=== PATIENT | male | born 1950 | race African-American/Black ===

== ENCOUNTER 2016-07-06 17:26 | Inpatient (IN) | payer OTHER, MEDICARE ==
[~2016-07-06] VITALS: Ht 175.3 cm; Wt 72.7 kg
[2016-07-06] VITALS (9 sets, daily range): BP systolic 142–166; BP diastolic 83–91; PULSE 102–113; RESP 16–24; TEMP 98.3–99.4; O2SAT 94–98
[~2016-07-06 17:26] MED LIST: ALBU8I INH; ATOR10TA PO; AUGM875T PO; BENZ100 PO; CALTCHW4 PO; GLUCTAB PO; PRED10PA PO; SPIRCAP INH; STAR120T PO
[2016-07-06] MEDS ORDERED: SODIUM CHLORIDE 0.9% FLUSH 5 ML FLUSH IVF PRN (17:45)
[2016-07-06] MEDS: RESP: ALBUTEROL 2.5 MG/IPRATROPIUM 0.5 MG NEB (SCH) INH ×3 (17:45→20:10)
--- NOTE | 2016-07-06 17:45 | PD ---
HPI Chief Complaint: Respiratory Symptoms Time Seen by Provider: 17:45 Travel History International Travel<30 days: No Contact w/Intl Traveler<30days: No Traveled to known affect area: No History of Present Illness HPI 66-year-old male with history of COPD and chronic sinusitis presents the ED for evaluation of 3 day history of increased shortness of breath. Patient endorses a tightness in the central area of the chest has been constant over the same period time. Denies radiation of the pain, diaphoresis, nausea or vomiting. Endorses chronic cough, occasionally productive of white sputum. He also endorses chronic rhinorrhea with occasional bright green output. He saw his primary care provider, Dr. Smith who prescribed azithromycin, currently on day 3. Went to [facility] today where his O2 sats were 88% on room air. Subsequently referred here. PFSH Past Medical History Cancer: Yes (PROSTATE) Cardiovascular Problems: Yes High Cholesterol: Yes COPD: Yes (EMPHYSEMA COPD) Cerebrovascular Accident: No Diabetes: Yes (TYPE 2 ) Diminished Hearing: No Genitourinary: Yes Hypertension: Yes Immune Disorder: No Musculoskeletal: Yes Neurologic: No Psychiatric: No Reproductive: No Respiratory: Yes (COPD) Immunizations Current: Yes Migraines: No Past Surgical History Other Surgery: Yes (4 SINUS SURGERIES - 1999 - 2006) Social History Alcohol Use: No Tobacco Use: No Substance Use: No Allergies-Medications (Allergen,Severity, Reaction): Coded Allergies: Clindamycin (Verified Allergy, Mild, RASH, 07/06/16) Tobramycin (Verified Allergy, Mild, RASH, 07/06/16) Reported Meds & Prescriptions Reported Meds & Active Scripts Active Reported Furosemide 20 Mg Tab 20 Mg PO DAILY Amoxicillin 500 Mg Cap 500 Mg PO BID Caltrate 600+D (Calcium Carbonate-Cholecalciferol) 600-800 Mg-Unit Tab 1 Tab PO BID Spiriva Handihaler (Tiotropium Inh) 18 Mcg Cap 18 Mcg INH DAILY 1 capsule = 18 mcg Atorvastatin (Atorvastatin Calcium) 10 Mg Tab 10 Mg PO HS Metformin ER (Metformin HCl) 500 Mg Mariam 500 Mg PO TID With evening meal Nateglinide 120 Mg Tab 120 Mg PO TIDAC Albuterol Neb (Albuterol Sulfate) 1.25 Mg/3 Ml Neb 1.25 Mg NEB TID NEB PRN Prednisone 10 Mg Tab 10 Mg PO DAILY Review of Systems Except as stated in HPI: all other systems reviewed are Neg Physical Exam Narrative GENERAL: Well-nourished, well-developed thin black male in no acute distress. SKIN: Warm and dry. HEAD: Normocephalic. EYES: No scleral icterus. No injection or drainage. NECK: Supple, trachea midline. No JVD or lymphadenopathy. CARDIOVASCULAR: Regular rate and rhythm without murmurs, gallops, or rubs. 2+ DP and radial pulses bilaterally. RESPIRATORY: Breath sounds equal bilaterally. Diffuse wheezes in all lung moran. ++ accessory muscle use. Speaking in short sentences. GASTROINTESTINAL: Abdomen soft, non-tender, nondistended. Active bowel sounds. MUSCULOSKELETAL: No cyanosis. 2+ pitting edema in bilateral lower extremities, left greater than right. Homans sign negative bilaterally. BACK: Nontender without obvious deformity. No CVA tenderness. Data Data Last Documented VS Vital Signs Date Time Temp Pulse Resp B/P Pulse Ox O2 Delivery O2 Flow Rate FiO2 07/06/16 18:09 95 Nasal Cannula 2.00 07/06/16 17:45 102 24 07/06/16 17:42 99.1 166/91 Orders Complete Blood Count With Diff (07/06/16 17:43) Comprehensive Metabolic Panel (07/06/16 17:43) B-Type Natriuretic Peptide (07/06/16 17:43) Act Partial Throm Time (Ptt) (07/06/16 17:43) Prothrombin Time / Inr (Pt) (07/06/16 17:43) Magnesium (Mg) (07/06/16 17:43) Ckmb (Isoenzyme) Profile (07/06/16 17:43) Troponin I (07/06/16 17:43) Urinalysis - C+S If Indicated (07/06/16 17:43) Influenzae A/B Antigen (07/06/16 17:43) Iv Access Insert/Monitor (07/06/16 17:43) Electrocardiogram (07/06/16 17:43) Ecg Monitoring (07/06/16 17:43) Oximetry (07/06/16 17:43) Oxygen Administration (07/06/16 17:43) Chest, Single Ap (07/06/16 17:43) Sodium Chloride 0.9% Flush (Ns Flush) (07/06/16 17:45) Albuterol-Ipratropium Neb (Duoneb Neb) (07/06/16 17:45) Blood Glucose (07/06/16 17:43) Blood Culture (07/06/16 17:45) Levofloxacin 750 Mg Premix Inj (Levaquin (07/06/16 18:00) CKMB (07/06/16 18:00) CKMB% (07/06/16 18:00) Ct Pulmonary Angiogram (07/06/16 19:40) Admit Order (Ed Use Only) (07/06/16 19:51) Labs Laboratory Tests Test 07/06/16 07/06/16 18:00 18:45 White Blood Count 13.8 TH/MM3 Red Blood Count 5.24 MIL/MM3 Hemoglobin 14.5 GM/DL Hematocrit 43.7 % Mean Corpuscular Volume 83.4 FL Mean Corpuscular Hemoglobin 27.7 PG Mean Corpuscular Hemoglobin 33.2 % Concent Red Cell Distribution Width 15.1 % Platelet Count 197 TH/MM3 Mean Platelet Volume 8.7 FL Neutrophils (%) (Auto) 72.6 % Lymphocytes (%) (Auto) 5.4 % Monocytes (%) (Auto) 6.6 % Eosinophils (%) (Auto) 14.7 % Basophils (%) (Auto) 0.7 % Neutrophils # (Auto) 10.0 TH/MM3 Lymphocytes # (Auto) 0.7 TH/MM3 Monocytes # (Auto) 0.9 TH/MM3 Eosinophils # (Auto) 2.0 TH/MM3 Basophils # (Auto) 0.1 TH/MM3 CBC Comment DIFF FINAL Differential Comment Prothrombin Time 10.5 SEC Prothromb Time International 1.0 RATIO Ratio Activated Partial 23.0 SEC Thromboplast Time Sodium Level 140 MEQ/L Potassium Level 3.5 MEQ/L Chloride Level 100 MEQ/L Carbon Dioxide Level 27.4 MEQ/L Anion Gap 13 MEQ/L Blood Urea Nitrogen 23 MG/DL Creatinine 1.11 MG/DL Estimat Glomerular Filtration 80 ML/MIN Rate Random Glucose 122 MG/DL Calcium Level 9.0 MG/DL Magnesium Level 1.9 MG/DL Total Bilirubin 0.8 MG/DL Aspartate Amino Transf 8 U/L (AST/SGOT) Alanine Aminotransferase 19 U/L (ALT/SGPT) Alkaline Phosphatase 79 U/L Total Creatine Kinase 173 U/L Creatine Kinase MB 2.6 NG/ML Troponin I LESS THAN 0.02 NG/ML B-Type Natriuretic Peptide 24 PG/ML Total Protein 7.0 GM/DL Albumin 3.1 GM/DL Urine Color LIGHT-YELLOW Urine Turbidity CLEAR Urine pH 6.0 Urine Specific [place] 1.009 Urine Protein NEG mg/dL Urine Glucose (UA) NEG mg/dL Urine Ketones NEG mg/dL Urine Occult Blood TRACE Urine Nitrite NEG Urine Bilirubin NEG Urine Urobilinogen LESS THAN 2.0 MG/DL Urine Leukocyte Esterase NEG Urine RBC 1 /hpf Urine WBC 1 /hpf Urine Mucus FEW /lpf Microscopic Urinalysis Comment CULT NOT INDICATED MDM Medical Decision Making Medical Screen Exam Complete: Yes Emergency Medical Condition: Yes Interpretation(s) Rate 102, sinus rhythm. NE interval 126 ms. QRS 94, QTC 398. Normal axis. No ischemic changes. Reviewed by Dr. Goddard. Differential Diagnosis Influenza versus viral illness versus pneumonia versus COPD exacerbation versus PE Narrative Course 66-year-old male with history of COPD and chronic sinusitis presents the ED for evaluation of 3 day history of increased shortness of breath and tightness of the chest. Denies radiation of the pain, diaphoresis, nausea or vomiting. Endorses chronic cough, occasionally productive of white sputum and chronic rhinorrhea with occasional bright green output. He saw his primary care provider, Dr. Smith who prescribed azithromycin, currently on day 3. On 2 L O2 as needed at home. O2 sats 83% at [facility] today, referred here. Vitals reviewed. Sats the low 90s on room air on presentation. Respiratory rate 24. Tachycardic rate 107. Patient is to, speaking in short sentences, positive accessory muscle use. Auscultation reveals diffuse wheezing in the lung moran. Edema bilateral lower extremities, left greater than right. Homans sign negative bilaterally. Placed on 2 L nasal cannula, IV was established. Blood cultures were obtained and are pending. Patient was administered duo nebs 3 and Levaquin. CBC: WBC 13.8. Hemoglobin 14.5. INR 1.0 CBC: BUN 23, creatinine 1.11 Magnesium 1.9. BNP 24. Cardiac enzymes: Negative Chest x-ray: No acute cardiopulmonary process. EKG: As above, no ischemic changes. CTA: Pending. Recheck of the patient reveals O2 sats improved to 98% on 2 L nasal cannula. Subjective improvement and breathing without much improvement of the lung sounds. Sats fall to 88% sans supplementary O2. Discussed the patient, workup and plan of care with Dr. Goddard who is agreeable with admission. We'll admit for COPD exacerbation. Spoke with Dr. Alarcon, medical service, who agrees to accept this patient. Please see her note for disposition. Diagnosis Primary Impression: COPD exacerbation Additional Impression: Hypoxia Sonia Ferguson Jul 06, 2016 17:45
[2016-07-06] MEDS ORDERED: FURO20TA PO (17:49)
[2016-07-06] MEDS ORDERED: ALBU1.25 NEB (17:49)
[2016-07-06] MEDS ORDERED: PRED10 PO (17:49)
[2016-07-06] MEDS ORDERED: ATOR10TA15 PO (17:49)
[2016-07-06] MEDS ORDERED: SPIRCAP INH (17:49)
[2016-07-06] MEDS ORDERED: AMOX500C PO (17:49)
[2016-07-06] MEDS ORDERED: NATE120T PO (17:49)
[2016-07-06] MEDS ORDERED: CALTTAB PO (17:49)
[2016-07-06] MEDS ORDERED: METF500T4 PO (17:49)
[2016-07-06] MEDS ORDERED: LEVOFLOXACIN 750 MG PREMIX INJ 150 ML IV ONE (18:00)
[2016-07-06 18:11] LABS: BASOPHIL # 0.1 TH/MM3 (0-0.2); BASOPHIL % 0.7 % (0.0-2.0); EOSINOPHIL % 14.7 % (0.0-4.0); HEMATOCRIT 43.7 % (39.0-51.0); HEMO FLAGS DIFF FINAL; LYMPH % 5.4 % (9.0-44.0); LYMPHOCYTE # 0.7 TH/MM3 (1.0-4.8); MEAN CELL VOLUME 83.4 FL (80.0-100.0); MEAN CORPUSCULAR HEMOGLOBIN 27.7 PG (27.0-34.0); MEAN CORPUSCULAR HGB CONC 33.2 % (32.0-36.0); MONO % 6.6 % (0.0-8.0); NEUT % 72.6 % (16.0-70.0); PLATELET COUNT 197 TH/MM3 (150-450); RED BLOOD COUNT 5.24 MIL/MM3 (4.50-5.90); RED CELL DISTRIBUTION WIDTH 15.1 % (11.6-17.2); WHITE BLOOD COUNT 13.8 TH/MM3 (4.0-11.0)
[2016-07-06 18:20] LABS: PROTHROMBIN TIME - PATIENT 10.5 SEC (9.8-11.6)
--- NOTE | 2016-07-06 18:28 | PD ---
Data Data Last Documented VS Vital Signs Date Time Temp Pulse Resp B/P Pulse Ox O2 Delivery O2 Flow Rate FiO2 07/06/16 19:00 107 20 94 Nasal Cannula 3 07/06/16 19:00 142/84 07/06/16 17:42 99.1 Orders Complete Blood Count With Diff (07/06/16 17:43) Comprehensive Metabolic Panel (07/06/16 17:43) B-Type Natriuretic Peptide (07/06/16 17:43) Act Partial Throm Time (Ptt) (07/06/16 17:43) Prothrombin Time / Inr (Pt) (07/06/16 17:43) Magnesium (Mg) (07/06/16 17:43) Ckmb (Isoenzyme) Profile (07/06/16 17:43) Troponin I (07/06/16 17:43) Urinalysis - C+S If Indicated (07/06/16 17:43) Influenzae A/B Antigen (07/06/16 17:43) Iv Access Insert/Monitor (07/06/16 17:43) Electrocardiogram (07/06/16 17:43) Ecg Monitoring (07/06/16 17:43) Oximetry (07/06/16 17:43) Oxygen Administration (07/06/16 17:43) Chest, Single Ap (07/06/16 17:43) Sodium Chloride 0.9% Flush (Ns Flush) (07/06/16 17:45) Albuterol-Ipratropium Neb (Duoneb Neb) (07/06/16 17:45) Blood Glucose (07/06/16 17:43) Blood Culture (07/06/16 17:45) Levofloxacin 750 Mg Premix Inj (Levaquin (07/06/16 18:00) CKMB (07/06/16 18:00) CKMB% (07/06/16 18:00) Ct Pulmonary Angiogram (07/06/16 19:40) Admit Order (Ed Use Only) (07/06/16 19:51) Labs Laboratory Tests Test 07/06/16 07/06/16 18:00 18:45 White Blood Count 13.8 TH/MM3 Red Blood Count 5.24 MIL/MM3 Hemoglobin 14.5 GM/DL Hematocrit 43.7 % Mean Corpuscular Volume 83.4 FL Mean Corpuscular Hemoglobin 27.7 PG Mean Corpuscular Hemoglobin 33.2 % Concent Red Cell Distribution Width 15.1 % Platelet Count 197 TH/MM3 Mean Platelet Volume 8.7 FL Neutrophils (%) (Auto) 72.6 % Lymphocytes (%) (Auto) 5.4 % Monocytes (%) (Auto) 6.6 % Eosinophils (%) (Auto) 14.7 % Basophils (%) (Auto) 0.7 % Neutrophils # (Auto) 10.0 TH/MM3 Lymphocytes # (Auto) 0.7 TH/MM3 Monocytes # (Auto) 0.9 TH/MM3 Eosinophils # (Auto) 2.0 TH/MM3 Basophils # (Auto) 0.1 TH/MM3 CBC Comment DIFF FINAL Differential Comment Prothrombin Time 10.5 SEC Prothromb Time International 1.0 RATIO Ratio Activated Partial 23.0 SEC Thromboplast Time Sodium Level 140 MEQ/L Potassium Level 3.5 MEQ/L Chloride Level 100 MEQ/L Carbon Dioxide Level 27.4 MEQ/L Anion Gap 13 MEQ/L Blood Urea Nitrogen 23 MG/DL Creatinine 1.11 MG/DL Estimat Glomerular Filtration 80 ML/MIN Rate Random Glucose 122 MG/DL Calcium Level 9.0 MG/DL Magnesium Level 1.9 MG/DL Total Bilirubin 0.8 MG/DL Aspartate Amino Transf 8 U/L (AST/SGOT) Alanine Aminotransferase 19 U/L (ALT/SGPT) Alkaline Phosphatase 79 U/L Total Creatine Kinase 173 U/L Creatine Kinase MB 2.6 NG/ML Troponin I LESS THAN 0.02 NG/ML B-Type Natriuretic Peptide 24 PG/ML Total Protein 7.0 GM/DL Albumin 3.1 GM/DL Urine Color LIGHT-YELLOW Urine Turbidity CLEAR Urine pH 6.0 Urine Specific [place] 1.009 Urine Protein NEG mg/dL Urine Glucose (UA) NEG mg/dL Urine Ketones NEG mg/dL Urine Occult Blood TRACE Urine Nitrite NEG Urine Bilirubin NEG Urine Urobilinogen LESS THAN 2.0 MG/DL Urine Leukocyte Esterase NEG Urine RBC 1 /hpf Urine WBC 1 /hpf Urine Mucus FEW /lpf Microscopic Urinalysis Comment CULT NOT INDICATED MDM Supervised Visit with JERRY: Yes Narrative Course I, Dr. Goddard, have reviewed the advance practice practitioner's documentation and am in agreement, met with the patient face to face, made the diagnosis, and the medical decision making was done by me. *My assessment and Findings: Patient is 66 year old male presents tachycardic and tachypneic. COPD exacerbation obvious suspecting underlying PNA. CXR negative. Significantly tachycardic to high 120's allbeit after nebulizer treatment with albuterol. PE is to be considered. Scan negative. SOB is improving but still would benefit from inpatient observation. Scripts Hydrocodone-Acetaminophen 5-325 mg Tab1 Tab PO Q6HR PRN (pain) #28 TAB Prov:Emory Conti MD 07/08/16 Fluticasone Nasal [place] 50 Mcg/Act Naspr2 [place] NASAL DAILY #1 BOTTLE Prov:Emory Conti MD 07/08/16 Veto Goddard MD Jul 06, 2016 18:28
--- NOTE | 2016-07-06 18:38 | RADRPT ---
EXAM DATE/TIME: 07/06/2016 18:05 [facility] COMPARISON: No previous studies available for comparison. INDICATIONS : Shortness of breath. MEDICAL HISTORY : Chronic obstructive pulmonary disease. SURGICAL HISTORY : None. ENCOUNTER: Initial ACUITY: 2 weeks PAIN SCORE: 0/10 LOCATION: Bilateral chest FINDINGS: A single view of the chest demonstrates the lungs to be symmetrically aerated without evidence of mas s, infiltrate or effusion. The cardiomediastinal contours are unremarkable. There appears to be some calcification of the mitral valve annulus. S-shaped scoliosis of the thoracolumbar spine. Otherwise intact. CONCLUSION: No acute cardiopulmonary process. Apparent calcification of the mitral valve annulus. Florin Mancera MD on July 06, 2016 at 18:35 Board Certified Radiologist. This report was verified electronically.
[2016-07-06 18:46] LABS: ANION GAP 13 MEQ/L (5-15); AST (GOT) 8 U/L (15-37); BICARBONATE 27.4 MEQ/L (21.0-32.0); BLOOD UREA NITROGEN 23 MG/DL (7-18); CHLORIDE 100 MEQ/L (98-107); GLOMERULAR FILTRATION RATE 80 ML/MIN (>89); MAGNESIUM 1.9 MG/DL (1.5-2.5); POTASSIUM 3.5 MEQ/L (3.5-5.1); SODIUM (NA) 140 MEQ/L (136-145)
[2016-07-06 18:50] LABS: ALKALINE PHOSPHATASE 79 U/L (45-117); ALT (GPT) 19 U/L (12-78); CREATINE KINASE 173 U/L (39-308); TOTAL BILIRUBIN ADULT 0.8 MG/DL (0.2-1.0)
[2016-07-06 18:57] LABS: BLOOD, URINE TRACE (NEG); COMMENT (UR) CULT NOT INDICATED; CULTURE IF INDICATED CULT NOT INDICATED; GLUCOSE,URINE NEG (NEG); KETONE, URINE NEG (NEG); MUCUS URINE FEW /lpf (OCC); NITRITE,URINE NEG (NEG); URINE COLOR LIGHT-YELLOW (YELLW/STRAW)
[2016-07-06 19:03] LABS: CKMB 2.6 NG/ML (0.5-3.6)
[2016-07-06] MEDS ORDERED: ACETAMINOPHEN/HYDROcodone 325 MG/5 MG TAB PO PRN (20:00)
[2016-07-06] MEDS ORDERED: DEXTROSE 50% IN WATER 50 ML VIAL(D50) IV PUSH PRN (20:00)
[2016-07-06] MEDS ORDERED: ACETAMINOPHEN 325 MG TAB PO PRN (20:00)
[2016-07-06] MEDS ORDERED: RESP: ALBUTEROL 2.5 MG/IPRATROPIUM 0.5 MG NEB (PRN) NEB (20:00)
[2016-07-06] MEDS ORDERED: SODIUM CHLORIDE 0.9% FLUSH 5 ML FLUSH FLUSH PRN (20:00)
[2016-07-06] MEDS ORDERED: ACETAMINOPHEN/HYDROcodone 325 MG/10 MG TAB PO PRN (20:00)
[2016-07-06] MEDS ORDERED: GLUCAGON 1 MG/ML VIAL OTHER PRN (20:00)
[2016-07-06] MEDS ORDERED: ONDANSETRON HCL 4 MG/2 ML VIAL IVP PRN (20:00)
[2016-07-06] MEDS ORDERED: BISACODYL 10 MG SUPP PR PRN (20:00)
--- NOTE | 2016-07-06 20:02 | HHI.HP ---
HPI Service [facility] Primary Care Physician Sabina Smith DO Admission Diagnosis COPD exacerbation, hypoxia Diagnoses: (1) COPD (chronic obstructive pulmonary disease) Diagnosis: Principal (2) Hypoxia Diagnosis: Principal (3) HTN (hypertension) Diagnosis: Principal (4) DM (diabetes mellitus) Diagnosis: Principal Travel History International Travel<30 Days: No Contact w/Intl Traveler <30 Da: No Traveled to Known Affected Are: No History of Present Illness This is a 66-year-old male with a PMH of HTN, DM, COPD, O2 Dependent and Prostate CA who was referred to the ER from Urgent Care for hypoxia with O2 sat 88% on RA. Pt states he's had ongoing SOB and productive cough w/ white- colored sputum x3 days, started on Z-pack by PCP, taking meds as prescribed w/ minimal relief. Presented to Urgent Care today for ongoing symptoms and found to have hypoxia. Denies fever or chills, no chest pain. On arrival, BP 166/91 , HR 107, O2 sat 94% on RA, Temp 99.1. WBC 13.8. Chemistry essentially unremarkable. UA negative. CXR with no acute findings. CTA Pulm pending. S/ p Levaquin and DuoNeb in ER w/ some improvement. Review of Systems Other ROS: 14 point review of systems otherwise negative. Past Family Social History Past Medical History PMH: HTN, DM, COPD, O2 Dependent and Prostate CA Past Surgical History PAST SURGICAL HISTORY: Sinus Surgery Allergies: Coded Allergies: Clindamycin (Verified Allergy, Mild, RASH, 07/06/16) Tobramycin (Verified Allergy, Mild, RASH, 07/06/16) Family History PAST FAMILY HISTORY: Reviewed. No h/o DM or CAD Social History PAST SOCIAL HISTORY: Negative for alcohol, tobacco or drugs. Physical Exam Vital Signs Vital Signs Date Time Temp Pulse Resp B/P Pulse Ox O2 Delivery O2 Flow Rate FiO2 07/06/16 18:09 95 Nasal Cannula 2.00 07/06/16 17:45 98 Nasal Cannula 2 07/06/16 17:45 102 24 94 Room Air 07/06/16 17:45 98 Nasal Cannula 2 1/22/17 17:42 99.1 107 24 166/91 94 Room Air 07/06/16 17:40 107 24 166/91 94 Room Air 07/06/16 17:30 98.3 109 16 163/88 98 Physical Exam PE: GENERAL: Pleasant middle-aged black male in no acute distress. HEENT: PERRLA, EOMI. No scleral icterus or conjunctival pallor. No lid lag or facial droop. CARDIOVASCULAR: Regular rate and rhythm. No obvious murmurs to auscultation. No chest tenderness to palpation. RESPIRATORY: No obvious rhonchi. Occasional wheezing. Breath sounds equal bilaterally. GASTROINTESTINAL: Abdomen soft, non-tender, nondistended. BS normal. MUSCULOSKELETAL: Extremities without clubbing, cyanosis, or edema. No obvious deformities. NEUROLOGICAL: Awake, alert and oriented x4. No focal neurologic deficits. Moving both upper and lower extremities spontaneously. Laboratory Laboratory Tests Test 07/06/16 07/06/16 18:00 18:45 White Blood Count 13.8 Red Blood Count 5.24 Hemoglobin 14.5 Hematocrit 43.7 Mean Corpuscular Volume 83.4 Mean Corpuscular Hemoglobin 27.7 Mean Corpuscular Hemoglobin 33.2 Concent Red Cell Distribution Width 15.1 Platelet Count 197 Mean Platelet Volume 8.7 Neutrophils (%) (Auto) 72.6 Lymphocytes (%) (Auto) 5.4 Monocytes (%) (Auto) 6.6 Eosinophils (%) (Auto) 14.7 Basophils (%) (Auto) 0.7 Neutrophils # (Auto) 10.0 Lymphocytes # (Auto) 0.7 Monocytes # (Auto) 0.9 Eosinophils # (Auto) 2.0 Basophils # (Auto) 0.1 CBC Comment DIFF FINAL Differential Comment Prothrombin Time 10.5 Prothromb Time International 1.0 Ratio Activated Partial 23.0 Thromboplast Time Sodium Level 140 Potassium Level 3.5 Chloride Level 100 Carbon Dioxide Level 27.4 Anion Gap 13 Blood Urea Nitrogen 23 Creatinine 1.11 Estimat Glomerular Filtration 80 Rate Random Glucose 122 Calcium Level 9.0 Magnesium Level 1.9 Total Bilirubin 0.8 Aspartate Amino Transf 8 (AST/SGOT) Alanine Aminotransferase 19 (ALT/SGPT) Alkaline Phosphatase 79 Total Creatine Kinase 173 Creatine Kinase MB 2.6 Troponin I LESS THAN 0.02 B-Type Natriuretic Peptide 24 Total Protein 7.0 Albumin 3.1 Urine Color LIGHT-YELLOW Urine Turbidity CLEAR Urine pH 6.0 Urine Specific [place] 1.009 Urine Protein NEG Urine Glucose (UA) NEG Urine Ketones NEG Urine Occult Blood TRACE Urine Nitrite NEG Urine Bilirubin NEG Urine Urobilinogen LESS THAN 2.0 Urine Leukocyte Esterase NEG Urine RBC 1 Urine WBC 1 Urine Mucus FEW Microscopic Urinalysis Comment CULT NOT INDICATED Date/Time Procedure Status Source Growth 07/06/16 18:05 Influenza Types A,B Antigen (DORIAN) - Final Complete Nasal Washing NEGATIVE FOR FLU A AND B ANTIGEN.... 07/06/16 18:05 Aerobic Blood Culture Received Blood Line Pending 07/06/16 18:05 Anaerobic Blood Culture Received Blood Line Pending Result Diagram: 07/06/16 1800 07/06/16 1800 Assessment and Plan Problem List: (1) COPD (chronic obstructive pulmonary disease) ICD Code: J44.9 Status: Acute (2) Hypoxia ICD Code: R09.02 Status: Acute (3) HTN (hypertension) ICD Code: I10 Status: Acute (4) DM (diabetes mellitus) ICD Code: E11.9 Status: Acute Assessment and Plan A/P: 1. COPD: Chronic Respiratory Failure w/ Acute Exacerbation. Referred to ER from Urgent Care secondary to hypoxia w/ O2 sat 88% on RA. S/p Z-pack x3 days by PCP w/ no improvement. +wheezing, +respiratory distress on arrival. Solu- Medrol, DuoNeb, Symbicort, Mucinex. S/p Levaquin in ER, will continue w/ IV Abx for possible atypical PNA. CXR w/ no acute findings, images reviewed by me. CTA Pulm ordered in ER, currently pending. Will follow up results. 2. DM: Sliding scale w/ Accu-Cheks. On Metformin and Nateglinide at home. 3. HTN: BP 160's, likely compounded by respiratory distress. Monitor BP. Resume home medications. 4. DVT Prophylaxis: SCD/Teds. 5. Social work for d/c planning as needed. 6. Case discussed w/ ER physician at length. Physician Certification 2 Midnight Certification Type: Admission for Inpatient Services Order for Inpatient Services The services are ordered in accordance with Medicare regulations or non- Medicare payer requirements, as applicable. In the case of services not specified as inpatient-only, they are appropriately provided as inpatient services in accordance with the 2-midnight benchmark. Estimated LOS (days): 2 days is the estimated time the patient will need to remain in the hospital, assuming treatment plan goals are met and no additional complications. Post-Hospital Plan: Home Marta Alarcon MD Jul 06, 2016 20:02
[2016-07-06] MEDS: RESP: ALBUTEROL 2.5 MG/IPRATROPIUM 0.5 MG NEB (SCH) NEB (20:11)
[2016-07-06] MEDS ORDERED: SODIUM CHLOR 0.9% 1000 ML INJ 1,000 ML IV ONE (20:15)
[2016-07-06] MEDS ORDERED: ACETAMINOPHEN 500 MG CPLT PO ONE (20:15)
[2016-07-06] MEDS ORDERED: IOHEXOL 350 MG/ML 10 ML VIAL (for RAD DIAG) IV ONE (20:52)
[2016-07-06] MEDS: INSULIN ASPART SUPPLEMENTAL SCALE SQ SCH (21:00)
[2016-07-06] MEDS: SODIUM CHLORIDE 0.9% FLUSH 5 ML FLUSH FLUSH SCH (21:05)
--- NOTE | 2016-07-06 21:06 | RADRPT ---
EXAM DATE/TIME: 07/06/2016 20:48 [facility] COMPARISON: No previous studies available for comparison. INDICATIONS : Shortness of breath and chest tightness. IV CONTRAST: 75 cc Omnipaque 350 (iohexol) IV RADIATION DOSE: 23.36 CTDIvol (mGy) MEDICAL HISTORY : Cardiovascular disease. Carcinoma, prostate. Chronic obstructive pulmonary dise ase. SURGICAL HISTORY : None. ENCOUNTER: Initial ACUITY: 1 day PAIN SCALE: 5/10 LOCATION: Bilateral chest TECHNIQUE: Volumetric scanning of the chest was performed using a pulmonary embolism protocol MIP images were reconstructed. Using automated exposure control and adjustment of the mA and/or kV acco rding to patient size, radiation dose was kept as low as reasonably achievable to obtain optimal diag nostic quality images. FINDINGS: No pulmonary embolus is identified. There is some increased density seen in the posteromedial left l ower lobe. There appears to be some possible bronchiectasis in this region. There are prominent lym ph nodes in the AP window, left tracheobronchial and subcarinal regions. There is a mildly prominent lymph node seen in the left hilum. Visualized structures in the upper abdomen are unremarkable. Th ere are some coronary artery calcifications present. CONCLUSION: 1. No pulmonary embolus. 2. Increased density in the posteromedial left lower lobe with possible bronchiectasis. There is al so some adenopathy in the left side of the mediastinum in the AP window, left tracheobronchial region , left hilum and the subcarinal regions. Bert Gill MD on July 06, 2016 at 20:59 Board Certified Radiologist. This report was verified electronically.
[2016-07-06] MEDS: guaiFENesin E.R. 600 MG TAB PO SCH (21:19)
[2016-07-06] MEDS: BUDESONIDE-FORMOTEROL 160/4.5 MCG INHALER INH SCH (21:41)
[2016-07-06] MEDS: ATORVASTATIN 10 MG TAB PO SCH (21:42)
[2016-07-07] VITALS (11 sets, daily range): BP systolic 56–162; BP diastolic 77–90; PULSE 83–100; RESP 18–20; TEMP 96–98.6; O2SAT 92–96
[2016-07-07] MEDS: methylPREDNISolone SOD SUCC 40 MG/1 ML VIAL IV PUSH SCH ×4 (00:30→22:15)
[2016-07-07 06:08] LABS: AUTOMATED NEUTROPHIL # 10.1 TH/MM3 (1.8-7.7); BASOPHIL % 0.3 % (0.0-2.0); EOSINOPHIL # 0.5 TH/MM3 (0-0.4); EOSINOPHIL % 4.7 % (0.0-4.0); HEMATOCRIT 40.6 % (39.0-51.0); HEMO FLAGS DIFF FINAL; LYMPH % 4.4 % (9.0-44.0); LYMPHOCYTE # 0.5 TH/MM3 (1.0-4.8); MEAN CELL VOLUME 83.1 FL (80.0-100.0); MEAN CORPUSCULAR HEMOGLOBIN 27.9 PG (27.0-34.0); MEAN CORPUSCULAR HGB CONC 33.6 % (32.0-36.0); MONO % 1.9 % (0.0-8.0); NEUT % 88.7 % (16.0-70.0); PLATELET COUNT 171 TH/MM3 (150-450); RED BLOOD COUNT 4.89 MIL/MM3 (4.50-5.90); RED CELL DISTRIBUTION WIDTH 15.1 % (11.6-17.2); WHITE BLOOD COUNT 11.3 TH/MM3 (4.0-11.0)
[2016-07-07 06:30] LABS: ALKALINE PHOSPHATASE 82 U/L (45-117); ALT (GPT) 16 U/L (12-78); ANION GAP 10 MEQ/L (5-15); AST (GOT) 9 U/L (15-37); BICARBONATE 27.1 MEQ/L (21.0-32.0); BLOOD UREA NITROGEN 17 MG/DL (7-18); CHLORIDE 99 MEQ/L (98-107); GLOMERULAR FILTRATION RATE 84 ML/MIN (>89); POTASSIUM 3.9 MEQ/L (3.5-5.1); SODIUM (NA) 136 MEQ/L (136-145); TOTAL BILIRUBIN ADULT 1.3 MG/DL (0.2-1.0)
[2016-07-07] MEDS: INSULIN ASPART SUPPLEMENTAL SCALE SQ SCH ×3 (06:49→22:15)
[2016-07-07] MEDS: RESP: ALBUTEROL 2.5 MG/IPRATROPIUM 0.5 MG NEB (SCH) NEB ×3 (07:50→19:57)
[2016-07-07] MEDS ORDERED: PNEUMOCOCCAL POLYVALENT INJ 25 MCG/0.5 ML SYR IM ONE (09:00)
[2016-07-07] MEDS ORDERED: INFLUENZA VIRUS VACCINE (QUADRIVALENT) 0.5 ML SYR IM ONE (09:00)
--- NOTE | 2016-07-07 09:35 | HHI.PR ---
Subjective Remarks Follow-up for COPD exacerbation. The patient reports his shortness of breath has improved some. He is on home oxygen just as needed. He states that shortness of breath has been worse with exertion. He hasn't tried getting out of bed and ambulating yet. He is having a cough with white sputum. He has chronic sinus problems and a sinus headache, unchanged, prescribed fluticasone last week. Objective Vitals Vital Signs Date Time Temp Pulse Resp B/P Pulse Ox O2 Delivery O2 Flow Rate FiO2 07/07/16 07:53 96.0 89 18 143/90 94 07/07/16 07:50 94 Nasal Cannula 3.00 07/07/16 06:05 18 07/07/16 05:04 96.8 96 20 142/77 95 07/07/16 02:12 98.4 100 20 162/87 95 07/07/16 01:45 20 07/06/16 23:23 109 07/06/16 21:57 99.4 102 20 153/83 94 07/06/16 21:00 113 21 150/89 95 Nasal Cannula 3 07/06/16 19:00 107 20 94 Nasal Cannula 3 07/06/16 19:00 107 20 142/84 94 Nasal Cannula 3 07/06/16 18:09 95 Nasal Cannula 2.00 07/06/16 17:45 98 Nasal Cannula 2 07/06/16 17:45 102 24 94 Room Air 07/06/16 17:45 98 Nasal Cannula 2 07/06/16 17:42 99.1 107 24 166/91 94 Room Air 07/06/16 17:40 107 24 166/91 94 Room Air 07/06/16 17:30 98.3 109 16 163/88 98 I/O 07/06/16 07/06/16 07/06/16 07/07/16 07/07/16 07/07/16 07:00 15:00 23:00 07:00 15:00 23:00 Output Total 800 ml Balance -800 ml Output Urine Total 800 ml Result Diagram: 07/07/16 0516 07/07/16 [address] Angiography 07/06/161939 Signed Impressions: Service Date/Time: Wednesday, July 06, 2016 20:48 - CONCLUSION: 1. No pulmonary embolus. 2. Increased density in the posteromedial left lower lobe with possible bronchiectasis. There is also some adenopathy in the left side of the mediastinum in the AP window, left tracheobronchial region, left hilum and the subcarinal regions. Bert Gill MD Chest X-Ray 07/06/16 [id number] Signed Impressions: Service Date/Time: Wednesday, July 06, 2016 18:05 - CONCLUSION: No acute cardiopulmonary process. Apparent calcification of the mitral valve annulus. Florin Mancera MD Objective Remarks GENERAL: Well-developed well-nourished. In no acute distress. SKIN: Warm and dry. No lesions noted. HEENT: Normocephalic. Pupils equal and round. Mucous membranes pink and moist. No sinus TTP. CARDIOVASCULAR: Regular rate and rhythm. No murmur appreciated. RESPIRATORY: No accessory muscle use. Clear to auscultation. Decreased, diminished breath sounds. No wheezing. GASTROINTESTINAL: Abdomen soft, non-tender, nondistended. Bowel sounds x4. MUSCULOSKELETAL: No obvious deformities. No clubbing or cyanosis. No edema. NEUROLOGICAL: Awake and alert. No focal neurological deficits. Moves upper and lower extremities spontaneously. Normal speech. PSYCHIATRIC: Appropriate mood and affect; insight and judgment normal. A/P Problem List: (1) COPD (chronic obstructive pulmonary disease) ICD Code: J44.9 Status: Acute (2) Hypoxia ICD Code: R09.02 Status: Acute (3) HTN (hypertension) ICD Code: I10 Status: Chronic (4) DM (diabetes mellitus) ICD Code: E11.9 Status: Chronic Assessment and Plan 66-year-old male with a PMH of HTN, DM, COPD, O2 Dependent and Prostate CA who was referred to the ER from Urgent Care for hypoxia with O2 sat 88% on RA COPD: Chronic Respiratory Failure on home O2 as needed, now w/ Acute Exacerbation. S/p Z-pack x3 days by PCP w/ no improvement. Improving. Continue IV steroids, taper. DuoNebs scheduled and as needed. Symbicort, Spiriva, Mucinex. Continue IV Levaquin. CXR w/ no acute findings. CTA Pulm ordered in the ED; no PE and left lower lobe bronchiectasis, left mediastinal adenopathy. Outpatient follow-up for DC. Sinusitis: Chronic. Continue fluticasone. Start Claritin. DM: Sliding scale w/ Accu-Cheks. On Metformin and Nateglinide at home. HTN: Not optimally controlled, likely compounded by respiratory distress. Continue home furosemide. DVT Prophylaxis: SCD/Teds. Written by Brian Stovall, acting as scribe for Dr. Conti on 07/07/16 at 09:35. The documentation accurately reflects the work performed [id number] by me on at 0935 Discharge Planning Disposition pending continued clinical improvement Problem Qualifiers (1) COPD (chronic obstructive pulmonary disease): Qualified Code: J44.1 - Chronic obstructive pulmonary disease with acute exacerbation (2) HTN (hypertension): Qualified Code: I10 - Essential hypertension (3) DM (diabetes mellitus): Brian Stovall Jul 07, 2016 09:35 Emory Conti MD Jul 07, 2016 11:28
[2016-07-07] MEDS: SODIUM CHLORIDE 0.9% FLUSH 5 ML FLUSH FLUSH SCH ×2 (09:57→20:18)
[2016-07-07] MEDS: TIOTROPIUM BROMIDE 18 MCG INH INH SCH (09:57)
[2016-07-07] MEDS: BUDESONIDE-FORMOTEROL 160/4.5 MCG INHALER INH SCH ×2 (09:58→22:14)
[2016-07-07] MEDS: FUROSEMIDE 20 MG TAB PO SCH (09:59)
[2016-07-07] MEDS: LORATADINE 10 MG TAB PO SCH (09:59)
[2016-07-07] MEDS: guaiFENesin E.R. 600 MG TAB PO SCH ×2 (09:59→22:14)
[2016-07-07] MEDS: FLUTICASONE PROPIONATE 50 MCG/ACT 16 GM NASAL SPRAY NASAL SCH (10:00)
--- NOTE | 2016-07-07 17:07 | EKG ---
Date Performed: 07/06/2016 Time Performed: 17:54:19 PTAGE: 66 years EKG: SINUS TACHYCARDIA POSSIBLE LEFT ATRIAL ENLARGEMENT Compared to prior tracing no significant change ABNORMAL RHYTHM ECG PREVIOUS TRACING : 08/29/2013 09.36 DOCTOR: Michael Barraza Interpretating Date/Time 07/07/2016 17:05:33
[2016-07-07] MEDS ORDERED: LEVOFLOXACIN 750 MG PREMIX INJ 150 ML IV SCH (20:00)
[2016-07-07] MEDS: ATORVASTATIN 10 MG TAB PO SCH (22:14)
[2016-07-08] VITALS (7 sets, daily range): BP systolic 129–157; BP diastolic 77–84; PULSE 78–98; RESP 18–20; TEMP 96.2–98.9; O2SAT 95–97
[2016-07-08] MEDS: methylPREDNISolone SOD SUCC 40 MG/1 ML VIAL IV PUSH SCH (05:49)
[2016-07-08] MEDS: INSULIN ASPART SUPPLEMENTAL SCALE SQ SCH ×4 (06:29→21:25)
[2016-07-08 08:03] LABS: BICARBONATE 26.9 MEQ/L (21.0-32.0); MAGNESIUM 2.4 MG/DL (1.5-2.5); POTASSIUM 4.3 MEQ/L (3.5-5.1)
--- NOTE | 2016-07-08 08:42 | HHI.PR ---
Subjective Remarks Follow-up COPD. Improving shortness of breath and exercise tolerance. He ambulated to the restroom. History of bronchiectasis. 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 Objective Vitals Vital Signs Date Time Temp Pulse Resp B/P Pulse Ox O2 Delivery O2 Flow Rate FiO2 07/08/16 08:00 98.5 81 20 134/79 96 07/08/16 05:25 98.4 78 20 148/83 95 07/07/16 23:14 98.6 92 20 158/81 96 07/07/16 20:31 98.6 99 20 156/80 95 07/07/16 20:08 92 07/07/16 19:58 95 Nasal Cannula 3.00 07/07/16 16:38 96.5 90 18 143/87 92 07/07/16 15:44 90 07/07/16 12:46 96.3 83 18 151/90 96 I/O 07/07/16 07/07/16 07/07/16 07/08/16 07/08/16 07/08/16 07:00 15:00 23:00 07:00 15:00 23:00 Intake Total 960 ml 240 ml Output Total 800 ml Balance -800 ml 960 ml 240 ml Intake Oral 960 ml 240 ml Output Urine Total 800 ml # Voids 4 5 Result Diagram: 07/07/16 0516 07/08/[address] Angiography 07/06/16 1940 Signed Impressions: Service Date/Time: Wednesday, July 06, 2016 20:48 - CONCLUSION: 1. No pulmonary embolus. 2. Increased density in the posteromedial left lower lobe with possible bronchiectasis. There is also some adenopathy in the left side of the mediastinum in the AP window, left tracheobronchial region, left hilum and the subcarinal regions. Bert Gill MD Chest X-Ray 07/06/16 [id number] Signed Impressions: Service Date/Time: Wednesday, July 06, 2016 18:05 - CONCLUSION: No acute cardiopulmonary process. Apparent calcification of the mitral valve annulus. Florin Mancera MD Objective Remarks GENERAL: Well-developed, well-nourished in no distress SKIN: Warm and dry. HEAD: Atraumatic. Normocephalic. EYES: Pupils equal and round. No scleral icterus. No injection or drainage. ENT: No nasal bleeding or discharge. Mucous membranes pink and moist. NECK: Trachea midline. No JVD. CARDIOVASCULAR: Regular rate and rhythm. RESPIRATORY: No accessory muscle use. Clear to auscultation. Breath sounds equal bilaterally. GASTROINTESTINAL: Abdomen soft, non-tender, nondistended. MUSCULOSKELETAL: Extremities without clubbing, cyanosis, or edema. No obvious deformities. NEUROLOGICAL: Awake and alert. No obvious cranial nerve deficits. Motor grossly within normal limits. Five out of 5 muscle strength in the arms and legs. Normal speech. PSYCHIATRIC: Appropriate mood and affect; insight and judgment normal. Procedures None A/P Problem List: (1) COPD (chronic obstructive pulmonary disease) ICD Code: J44.9 Status: Acute (2) Hypoxia ICD Code: R09.02 Status: Acute (3) HTN (hypertension) ICD Code: I10 Status: Chronic (4) DM (diabetes mellitus) ICD Code: E11.9 Status: Chronic Assessment and Plan 66-year-old male with a PMH of HTN, DM, COPD, O2 Dependent and Prostate CA who was referred to the ER from Urgent Care for hypoxia with O2 sat 88% on RA COPD: Chronic Respiratory Failure on home O2 as needed, now w/ Acute Exacerbation. S/p Z-pack x3 days by PCP w/ no improvement. Improving. Continue steroids switch to by mouth taper. DuoNebs scheduled and as needed. Symbicort, Spiriva, Mucinex. Continue Levaquin switch to by mouth. CXR w/ no acute findings. CTA Pulm ordered in the ED; no PE and left lower lobe bronchiectasis, left mediastinal adenopathy results discussed with the patient. Outpatient follow-up for DC. Sinusitis: Chronic. Continue fluticasone. Continue Claritin. DM: Sliding scale w/ Accu-Cheks. On Metformin and Nateglinide at home. Uncontrolled secondary to steroids. Restart home medications HTN: Not optimally controlled, likely compounded by respiratory distress. Continue home furosemide. Continue to monitor DVT Prophylaxis: SCD/Teds. Discharge Planning Possible discharge later today Problem Qualifiers (1) COPD (chronic obstructive pulmonary disease): Qualified Code: J44.1 - Chronic obstructive pulmonary disease with acute exacerbation (2) HTN (hypertension): Qualified Code: I10 - Essential hypertension (3) DM (diabetes mellitus): Abando,Oskar MD Jul 08, 2016 08:42
[2016-07-08] MEDS ORDERED: PRED20 PO (08:48)
[2016-07-08] MEDS ORDERED: LEVA750T PO (08:48)
[2016-07-08] MEDS ORDERED: HYDR-3516 PO (08:48)
[2016-07-08] MEDS ORDERED: LORA-361 PO (08:48)
[2016-07-08] MEDS ORDERED: FLUT50SP NASAL (08:48)
--- NOTE | 2016-07-08 08:48 | HHI.DCPOC ---
Discharge Care Plan Diagnosis: (1) DM (diabetes mellitus) (2) COPD exacerbation (3) Hypoxia Your Health Problems Are: Difficulty with ADL Exercise Tolerance Shortness of Breath Goals to Promote Your Health * To prevent worsening of your condition and complications * To maintain your health at the optimal level Directions to Meet Your Goals Take your medications as prescribed Follow your dietary instruction Follow activity as directed Keep your appointments as scheduled Take your immunizations and boosters as scheduled If your symptoms worsen call your PCP, if no PCP go to Urgent Care Center or Emergency Room Smoking is Dangerous to Your Health. Avoid second hand smoke Call the 24-hour hour crisis hotline for domestic abuse at Emory Conti MD Jul 08, 2016 08:48
[2016-07-08] MEDS: FUROSEMIDE 20 MG TAB PO SCH (09:00)
[2016-07-08] MEDS: LORATADINE 10 MG TAB PO SCH (09:00)
[2016-07-08] MEDS: guaiFENesin E.R. 600 MG TAB PO SCH ×2 (09:00→21:24)
[2016-07-08] MEDS: BUDESONIDE-FORMOTEROL 160/4.5 MCG INHALER INH SCH ×2 (09:00→21:25)
[2016-07-08] MEDS: FLUTICASONE PROPIONATE 50 MCG/ACT 16 GM NASAL SPRAY NASAL SCH (09:01)
[2016-07-08] MEDS: SODIUM CHLORIDE 0.9% FLUSH 5 ML FLUSH FLUSH SCH ×2 (09:01→21:24)
[2016-07-08] MEDS: TIOTROPIUM BROMIDE 18 MCG INH INH SCH (09:01)
[2016-07-08] MEDS: RESP: ALBUTEROL 2.5 MG/IPRATROPIUM 0.5 MG NEB (SCH) NEB ×3 (10:14→19:35)
[2016-07-08] MEDS: metFORMIN HCL 500 MG TAB PO SCH ×3 (11:38→17:45)
[2016-07-08] MEDS: predniSONE 20 MG TAB PO SCH (11:38)
[2016-07-08] MEDS ORDERED: LEVOFLOXACIN 750 MG TAB PO SCH (20:00)
[2016-07-08] MEDS: ATORVASTATIN 10 MG TAB PO SCH (21:25)
[2016-07-09 01:22] VITALS: BP 138/69; PULSE 97; RESP 18; TEMP 97.8; O2SAT 97
[2016-07-09 05:20] VITALS: BP 138/77; PULSE 68; RESP 18; TEMP 97.9; O2SAT 97
[2016-07-09] MEDS: INSULIN ASPART SUPPLEMENTAL SCALE SQ SCH (06:48)
[2016-07-09] MEDS: RESP: ALBUTEROL 2.5 MG/IPRATROPIUM 0.5 MG NEB (SCH) NEB (07:25)
[2016-07-09 07:27] VITALS: O2SAT 97
[2016-07-09 08:00] VITALS: PULSE 88
[2016-07-09] MEDS: metFORMIN HCL 500 MG TAB PO SCH (08:34)
[2016-07-09] MEDS: SODIUM CHLORIDE 0.9% FLUSH 5 ML FLUSH FLUSH SCH (08:34)
[2016-07-09] MEDS: FUROSEMIDE 20 MG TAB PO SCH (08:35)
[2016-07-09] MEDS: TIOTROPIUM BROMIDE 18 MCG INH INH SCH (08:35)
[2016-07-09] MEDS: guaiFENesin E.R. 600 MG TAB PO SCH (08:35)
[2016-07-09] MEDS: BUDESONIDE-FORMOTEROL 160/4.5 MCG INHALER INH SCH (08:35)
[2016-07-09] MEDS: predniSONE 20 MG TAB PO SCH (08:35)
[2016-07-09] MEDS: FLUTICASONE PROPIONATE 50 MCG/ACT 16 GM NASAL SPRAY NASAL SCH (08:35)
[2016-07-09] MEDS: LORATADINE 10 MG TAB PO SCH (08:35)
[2016-07-09 08:40] VITALS: BP 142/82; PULSE 87; RESP 16; TEMP 98.8; O2SAT 98
--- NOTE | 2016-07-09 09:18 | HHI.PR ---
Subjective Remarks Follow-up COPD. He is doing okay impression shortness of breath with increased exercise tolerance. Requesting records to be forwarded to his license issuer Dr. Fonseca. Discussed with RN Objective Vitals Vital Signs Date Time Temp Pulse Resp B/P Pulse Ox O2 Delivery O2 Flow Rate FiO2 07/09/16 08:40 98.8 87 16 142/82 98 07/09/16 07:27 97 Nasal Cannula 2.00 07/09/16 05:20 97.9 68 18 138/77 97 07/09/16 01:22 97.8 97 18 138/69 97 07/08/16 20:42 96 07/08/16 19:36 96 Nasal Cannula 2.00 07/08/16 19:07 97.9 91 18 141/77 96 07/08/16 16:00 98.9 96 18 157/84 97 07/08/16 12:00 96.2 98 18 129/81 95 I/O 07/08/16 07/08/16 07/08/16 07/09/16 07/09/16 07/09/16 07:00 15:00 23:00 07:00 15:00 23:00 Intake Total 240 ml 1440 ml Balance 240 ml 1440 ml Intake Oral 240 ml 1440 ml # Voids 5 3 2 # Bowel Movements 0 Result Diagram: 07/07/16 0516 07/08/16 [address] Angiography 07/06/16 1940 Signed Impressions: Service Date/Time: Wednesday, July 06, 2016 20:48 - CONCLUSION: 1. No pulmonary embolus. 2. Increased density in the posteromedial left lower lobe with possible bronchiectasis. There is also some adenopathy in the left side of the mediastinum in the AP window, left tracheobronchial region, left hilum and the subcarinal regions. Bert Gill MD Chest X-Ray 07/06/16 [id number] Signed Impressions: Service Date/Time: Wednesday, July 06, 2016 18:05 - CONCLUSION: No acute cardiopulmonary process. Apparent calcification of the mitral valve annulus. Florin Mancera MD Objective Remarks GENERAL: Well-developed, well-nourished in no distress SKIN: Warm and dry. HEAD: Atraumatic. Normocephalic. EYES: Pupils equal and round. No scleral icterus. No injection or drainage. ENT: No nasal bleeding or discharge. Mucous membranes pink and moist. NECK: Trachea midline. No JVD. CARDIOVASCULAR: Regular rate and rhythm. RESPIRATORY: No accessory muscle use. Clear to auscultation. Breath sounds equal bilaterally. GASTROINTESTINAL: Abdomen soft, non-tender, nondistended. MUSCULOSKELETAL: Extremities without clubbing, cyanosis, or edema. No obvious deformities. NEUROLOGICAL: Awake and alert. No obvious cranial nerve deficits. Motor grossly within normal limits. Five out of 5 muscle strength in the arms and legs. Normal speech. PSYCHIATRIC: Appropriate mood and affect; insight and judgment normal. Procedures None A/P Problem List: (1) COPD (chronic obstructive pulmonary disease) ICD Code: J44.9 Status: Acute (2) Hypoxia ICD Code: R09.02 Status: Acute (3) HTN (hypertension) ICD Code: I10 Status: Chronic (4) DM (diabetes mellitus) ICD Code: E11.9 Status: Chronic Assessment and Plan 66-year-old male with a PMH of HTN, DM, COPD, O2 Dependent and Prostate CA who was referred to the ER from Urgent Care for hypoxia with O2 sat 88% on RA COPD: Chronic Respiratory Failure on home O2 as needed, now w/ Acute Exacerbation. S/p Z-pack x3 days by PCP w/ no improvement. Improving. Continue steroids switch to by mouth. DuoNebs scheduled and as needed. Symbicort, Spiriva, Mucinex. Continue Levaquin switch to by mouth. CXR w/ no acute findings. CTA Pulm ordered in the ED; no PE and left lower lobe bronchiectasis, left mediastinal adenopathy results discussed with the patient. Outpatient follow-up for DC. Sinusitis: Chronic. Continue fluticasone. Continue Claritin. DM: Sliding scale w/ Accu-Cheks. On Metformin and Nateglinide at home. Uncontrolled secondary to steroids. Restart home medications. Improving HTN: Not optimally controlled, likely compounded by respiratory distress. Continue home furosemide. Continue to monitor. Improving DVT Prophylaxis: SCD/Teds. Discharge Planning Stable for discharge Problem Qualifiers (1) COPD (chronic obstructive pulmonary disease): Qualified Code: J44.1 - Chronic obstructive pulmonary disease with acute exacerbation (2) HTN (hypertension): Qualified Code: I10 - Essential hypertension (3) DM (diabetes mellitus): Emory Conti MD 25, 2017 09:18
--- NOTE | 2016-07-09 09:21 | HHI.DS ---
Discharge Summary Admission Date Jul 06, 2016 at 19:52 Discharge Date: Jul 09, 2016 Admitting Diagnosis COPD exacerbation, hypoxia (1) COPD (chronic obstructive pulmonary disease) ICD Code: J44.9 Diagnosis: Principal (2) Hypoxia ICD Code: R09.02 Diagnosis: Principal (3) HTN (hypertension) ICD Code: I10 Diagnosis: Secondary (4) DM (diabetes mellitus) ICD Code: E11.9 Diagnosis: Secondary Procedures None Brief History - From Admission This is a 66-year-old male with a PMH of HTN, DM, COPD, O2 Dependent and Prostate CA who was referred to the ER from Urgent Care for hypoxia with O2 sat 88% on RA. Pt states he's had ongoing SOB and productive cough w/ white- colored sputum x3 days, started on Z-pack by PCP, taking meds as prescribed w/ minimal relief. Presented to Urgent Care today for ongoing symptoms and found to have hypoxia. Denies fever or chills, no chest pain. On arrival, BP 166/91 , HR 107, O2 sat 94% on RA, Temp 99.1. WBC 13.8. Chemistry essentially unremarkable. UA negative. CXR with no acute findings. CTA Pulm pending. S/ p Levaquin and DuoNeb in ER w/ some improvement. CBC/BMP: 07/07/16 0516 07/08/16 0720 Significant Findings Laboratory Tests Test 07/06/16 07/06/16 07/07/16 07/08/16 18:00 18:45 05:16 07:20 White Blood Count 13.8 TH/MM3 11.3 TH/MM3 (4.0-11.0) (4.0-11.0) Neutrophils (%) (Auto) 72.6 % 88.7 % (16.0-70.0) (16.0-70.0) Lymphocytes (%) (Auto) 5.4 % 4.4 % (9.0-44.0) (9.0-44.0) Eosinophils (%) (Auto) 14.7 % 4.7 % (0.0-4.0) (0.0-4.0) Neutrophils # (Auto) 10.0 TH/MM3 10.1 TH/MM3 (1.8-7.7) (1.8-7.7) Lymphocytes # (Auto) 0.7 TH/MM3 0.5 TH/MM3 (1.0-4.8) (1.0-4.8) Eosinophils # (Auto) 2.0 TH/MM3 0.5 TH/MM3 (0-0.4) (0-0.4) Activated Partial 23.0 SEC Thromboplast Time (24.3-30.1) Blood Urea Nitrogen 23 MG/DL (7-18) 24 MG/DL (7-18) Estimat Glomerular Filtration 80 ML/MIN (>89) 84 ML/MIN (>89) 74 ML/MIN (>89) Rate Random Glucose 122 MG/DL 243 MG/DL 231 MG/DL (74-106) (74-106) (74-106) Aspartate Amino Transf 8 U/L (15-37) 9 U/L (15-37) (AST/SGOT) Troponin I LESS THAN 0.02 NG/ML (0.02-0.05) Albumin 3.1 GM/DL 2.8 GM/DL (3.4-5.0) (3.4-5.0) Urine Occult Blood TRACE (NEG) Urine Mucus FEW /lpf (OCC) Calcium Level 8.3 MG/DL (8.5-10.1) Total Bilirubin 1.3 MG/DL (0.2-1.0) Imaging Last Impressions CT Angiography 07/06/16 1940 Signed Impressions: Service Date/Time: Wednesday, July 06, 2016 20:48 - CONCLUSION: 1. No pulmonary embolus. 2. Increased density in the posteromedial left lower lobe with possible bronchiectasis. There is also some adenopathy in the left side of the mediastinum in the AP window, left tracheobronchial region, left hilum and the subcarinal regions. Bert Gill MD Chest X-Ray 07/06/16 [id number] Signed Impressions: Service Date/Time: Wednesday, July 06, 2016 18:05 - CONCLUSION: No acute cardiopulmonary process. Apparent calcification of the mitral valve annulus. Florin Mancera MD PE at Discharge GENERAL: Well-developed, well-nourished in no distress SKIN: Warm and dry. HEAD: Atraumatic. Normocephalic. EYES: Pupils equal and round. No scleral icterus. No injection or drainage. ENT: No nasal bleeding or discharge. Mucous membranes pink and moist. NECK: Trachea midline. No JVD. CARDIOVASCULAR: Regular rate and rhythm. RESPIRATORY: No accessory muscle use. Clear to auscultation. Breath sounds equal bilaterally. GASTROINTESTINAL: Abdomen soft, non-tender, nondistended. MUSCULOSKELETAL: Extremities without clubbing, cyanosis, or edema. No obvious deformities. NEUROLOGICAL: Awake and alert. No obvious cranial nerve deficits. Motor grossly within normal limits. Five out of 5 muscle strength in the arms and legs. Normal speech. PSYCHIATRIC: Appropriate mood and affect; insight and judgment normal. Hospital Course 66-year-old male with a PMH of HTN, DM, COPD, O2 Dependent and Prostate CA who was referred to the ER from Urgent Care for hypoxia with O2 sat 88% on RA COPD: Chronic Respiratory Failure on home O2 as needed, now w/ Acute Exacerbation. S/p Z-pack x3 days by PCP w/ no improvement. Improving. Continue steroids switch to by mouth. DuoNebs scheduled and as needed. Symbicort, Spiriva, Mucinex. Continue Levaquin switch to by mouth. CXR w/ no acute findings. CTA Pulm ordered in the ED; no PE and left lower lobe bronchiectasis, left mediastinal adenopathy results discussed with the patient. Outpatient follow-up for DC. Sinusitis: Chronic. Continue fluticasone. Continue Claritin. DM: Sliding scale w/ Accu-Cheks. On Metformin and Nateglinide at home. Uncontrolled secondary to steroids. Restart home medications. Improving HTN: Not optimally controlled, likely compounded by respiratory distress. Continue home furosemide. Continue to monitor. Improving DVT Prophylaxis: SCD/Teds. Pt Condition on Discharge: Stable Discharge Disposition: Discharge Home Discharge Time: <= 30 minutes Discharge Instructions DIET: Follow Instructions for: Heart Healthy Diet, Diabetic Diet Activities you can perform: Regular-No Restrictions Activities to Avoid: Driving Follow up Referrals: PCP Follow-up - 2-3 Days Pulmonology - 1 Week New Medications: Levofloxacin (Levaquin) 750 Mg Tab 750 MG PO DAILY Stop date 07/14/16 Infection #6 Ref 0 TAB Fluticasone Nasal [place] (Fluticasone Nasal [place]) 50 Mcg/Act Naspr 2 SPRAY NASAL DAILY Allergy Management #1 BOTTLE Hydrocodone-Acetaminophen (Hydrocodone-Acetaminophen) 5-325 mg Tab 1 TAB PO Q6HR PRN pain #28 TAB Loratadine (Claritin) 10 Mg Tab 10 MG PO DAILY Allergy Management #30 TAB Prednisone (Prednisone) 20 Mg Tab 40 MG PO DAILY Control Inflammation #10 TAB Continued Medications: Albuterol Neb (Albuterol Neb) 1.25 Mg/3 Ml Neb 1.25 MG NEB TID NEB PRN SHORTNESS OF BREATH #100 Ref 0 NEBULE Atorvastatin (Atorvastatin) 10 Mg Tab 10 MG PO HS Cholesterol Management #30 Ref 0 TAB Calcium Carbonate-Cholecalciferol (Caltrate 600+D) 600-800 Mg-Unit Tab 1 TAB PO BID Calcium Supplement Ref 0 TAB Furosemide (Furosemide) 20 Mg Tab 20 MG PO DAILY #30 Ref 0 TAB Metformin ER (Metformin ER) 500 Mg Mariam 500 MG PO TID With evening meal Blood Sugar Management Ref 0 TAB Nateglinide (Nateglinide) 120 Mg Tab 120 MG PO TIDAC Blood Sugar Management #90 Ref 0 TAB Tiotropium Inh (Spiriva Handihaler) 18 Mcg Cap 18 MCG INH DAILY 1 capsule = 18 mcg COPD #30 Ref 0 CAP Emory Conti MD Jul 09, 2016 09:21
[2016-07-09] MEDS ORDERED: BENZOCAINE-MENTHOL (SUGAR FREE) 15 MG-3.6 MG LOZENGE BUCCAL PRN (10:00)
[2016-07-10] MEDS ORDERED: PROM6.256 PO ×2 (06:57→10:12)
== END 2016-07-09 12:36 | disposition home or self-care (01) | DRG 189 ==
LOC: NEPA 17:26 → NEDA 19:52 → NEPGCP 21:44
PROVIDERS: ADMIT Internal Medicine; ATTEND Internal Medicine
DX: J96.21 Acute and chronic respiratory failure with hypoxia (principal); Z99.81 Dependence on supplemental oxygen; E11.65 Type 2 diabetes mellitus with hyperglycemia; J44.1 Chronic obstructive pulmonary disease with (acute) exacerbation; I10 Essential (primary) hypertension; J32.9 Chronic sinusitis, unspecified; R60.0 Localized edema; R00.0 Tachycardia, unspecified; T38.0X5A Adverse effect of glucocorticoids and synthetic analogues, initial encounter; Z79.84 Long term (current) use of oral hypoglycemic drugs; Z85.46 Personal history of malignant neoplasm of prostate; Z88.1 Allergy status to other antibiotic agents; Z23 Encounter for immunization
CPT/HCPCS: 71010; 71275; 80048; 80053; 81001; 82550; 82552; 82948; 83735; 83880; 84484; 85025; 85610; 85730; 87040; 87804; 90686; 90732; 93005; 94640; 94664; 96365; J1815; J1956; J2920; J7030; J7512; Q2038; Q9967

== ENCOUNTER 2016-07-10 05:34 | Emergency (ER) | payer MEDICARE, OTHER ==
[~2016-07-10] VITALS: Ht 175.3 cm; Wt 70.0 kg
[~2016-07-10 05:34] MED LIST changes: +ALBU1.25 NEB; -ALBU8I INH; +AMOX500C PO; -ATOR10TA PO; +ATOR10TA15 PO; -AUGM875T PO; -BENZ100 PO; -CALTCHW4 PO; +CALTTAB PO; +FLUT50SP NASAL; +FURO20TA PO; -GLUCTAB PO; +HYDR-3516 PO; +LEVA750T PO; +LORA-361 PO; +METF500T4 PO; +NATE120T PO; +PRED10 PO; -PRED10PA PO; +PRED20 PO; -STAR120T PO
[2016-07-10 05:37] VITALS: BP 151/74; PULSE 110; RESP 24; TEMP 99.3; O2SAT 88
[2016-07-10] MEDS ORDERED: SODIUM CHLORIDE 0.9% FLUSH 5 ML FLUSH IVF PRN (05:45)
[2016-07-10 05:47] VITALS: RESP 26; O2SAT 91
--- NOTE | 2016-07-10 05:51 | PD ---
HPI Chief Complaint: Respiratory Distress Time Seen by Provider: 05:41 Travel History International Travel<30 days: No Contact w/Intl Traveler<30days: No Traveled to known affect area: No History of Present Illness HPI This is a 66-year-old male who reports increasing shortness of breath, worse with exertion, described as difficulty catching his breath that started yesterday and has been progressing. He was just discharged from the hospital yesterday in the setting of an acute COPD exacerbation. He says when he was discharged he was feeling quite well when he started to walk around his house he became short of breath again. At home he is on 2 L of oxygen. When EMS arrived at the house they found him to be 88% on room air at 91% on his 2 L. He was not given any medications. He did take 40 of prednisone this morning as well as his Lasix. PFSH Past Medical History Arthritis: No Cancer: Yes (PROSTATE) Cardiovascular Problems: Yes High Cholesterol: Yes COPD: Yes (EMPHYSEMA COPD) Cerebrovascular Accident: No Diabetes: Yes (TYPE 2) Diminished Hearing: No Genitourinary: Yes Hypertension: Yes Immune Disorder: No Musculoskeletal: Yes Neurologic: No Psychiatric: No Reproductive: No Respiratory: Yes (COPD) Immunizations Current: Yes Migraines: No Radiation Therapy: Yes (7-8 years ago) Seizures: No Past Surgical History Abdominal Surgery: Yes Other Surgery: Yes (4 SINUS SURGERIES - 1999 - 2006) Social History Alcohol Use: No Tobacco Use: No Substance Use: No Allergies-Medications (Allergen,Severity, Reaction): Coded Allergies: Clindamycin (Verified Allergy, Mild, RASH, 07/10/16) Tobramycin (Verified Allergy, Mild, RASH, 07/10/16) Reported Meds & Prescriptions Reported Meds & Active Scripts Active Levaquin (Levofloxacin) 750 Mg Tab 750 Mg PO DAILY Stop date 07/14/16 Prednisone 20 Mg Tab 40 Mg PO DAILY Claritin (Loratadine) 10 Mg Tab 10 Mg PO DAILY Hydrocodone-Acetaminophen 5-325 mg Tab 1 Tab PO Q6HR PRN Fluticasone Nasal [place] 50 Mcg/Act Naspr 2 [place] NASAL DAILY Reported Furosemide 20 Mg Tab 20 Mg PO DAILY Amoxicillin 500 Mg Cap 500 Mg PO BID Caltrate 600+D (Calcium Carbonate-Cholecalciferol) 600-800 Mg-Unit Tab 1 Tab PO BID Spiriva Handihaler (Tiotropium Inh) 18 Mcg Cap 18 Mcg INH DAILY 1 capsule = 18 mcg Atorvastatin (Atorvastatin Calcium) 10 Mg Tab 10 Mg PO HS Metformin ER (Metformin HCl) 500 Mg Mariam 500 Mg PO TID With evening meal Nateglinide 120 Mg Tab 120 Mg PO TIDAC Albuterol Neb (Albuterol Sulfate) 1.25 Mg/3 Ml Neb 1.25 Mg NEB TID NEB PRN Prednisone 10 Mg Tab 10 Mg PO DAILY Review of Systems Except as stated in HPI: all other systems reviewed are Neg Physical Exam Narrative GENERAL:Well appearing, no acute distress SKIN: Warm and dry. HEAD: Atraumatic. Normocephalic. EYES: Pupils equal and round. No injection or drainage. ENT: Moist mucous membranes NECK: Trachea midline. CARDIOVASCULAR: Regular rate and rhythm. No murmur appreciated. RESPIRATORY: Poor air movement, increased work of breathing GASTROINTESTINAL: Abdomen soft, non-tender, nondistended. MUSCULOSKELETAL: No obvious deformities. NEUROLOGICAL: Awake and alert. No obvious cranial nerve deficits. Moving all extremities. PSYCHIATRIC: Appropriate mood and affect; insight and judgment normal. Data Data Last Documented VS Vital Signs Date Time Temp Pulse Resp B/P Pulse Ox O2 Delivery O2 Flow Rate FiO2 07/10/16 05:47 26 91 Nasal Cannula 2 07/10/16 05:45 103 07/10/16 05:37 99.3 151/74 Orders Electrocardiogram (07/10/16 05:42) Basic Metabolic Panel (Bmp) (07/10/16 05:42) Complete Blood Count With Diff (07/10/16 05:42) Chest, Single Ap (07/10/16 05:42) Ecg Monitoring (07/10/16 05:42) Iv Access Insert/Monitor (07/10/16 05:42) Oximetry (07/10/16 05:42) Oxygen Administration (07/10/16 05:42) Sodium Chloride 0.9% Flush (Ns Flush) (07/10/16 05:45) B-Type Natriuretic Peptide (07/10/16 05:42) Albuterol Neb (Albuterol Neb) (07/10/16 05:45) Methylprednisolone So Succ Inj (Solumedr (07/10/16 06:00) Labs Laboratory Tests Test 07/10/16 05:40 White Blood Count 16.3 TH/MM3 Red Blood Count 5.42 MIL/MM3 Hemoglobin 15.5 GM/DL Hematocrit 44.7 % Mean Corpuscular Volume 82.5 FL Mean Corpuscular Hemoglobin 28.5 PG Mean Corpuscular Hemoglobin 34.6 % Concent Red Cell Distribution Width 15.2 % Platelet Count 201 TH/MM3 Mean Platelet Volume 8.6 FL Neutrophils (%) (Auto) 88.0 % Lymphocytes (%) (Auto) 1.5 % Monocytes (%) (Auto) 2.6 % Eosinophils (%) (Auto) 7.7 % Basophils (%) (Auto) 0.2 % Neutrophils # (Auto) 14.3 TH/MM3 Lymphocytes # (Auto) 0.2 TH/MM3 Monocytes # (Auto) 0.4 TH/MM3 Eosinophils # (Auto) 1.3 TH/MM3 Basophils # (Auto) 0.0 TH/MM3 CBC Comment AUTO DIFF Differential Total Cells 100 Counted Neutrophils % (Manual) 80 % Band Neutrophils % 4 % Lymphocytes % 1 % Monocytes % 5 % Eosinophils % 10 % Neutrophils # (Manual) 13.7 TH/MM3 Differential Comment FINAL DIFF MANUAL Toxic Vacuolation PRESENT Platelet Estimate NORMAL Platelet Morphology Comment CLUMPED Sodium Level 137 MEQ/L Potassium Level 4.0 MEQ/L Chloride Level 99 MEQ/L Carbon Dioxide Level 30.5 MEQ/L Anion Gap 8 MEQ/L Blood Urea Nitrogen 26 MG/DL Creatinine 1.31 MG/DL Estimat Glomerular Filtration 66 ML/MIN Rate Random Glucose 149 MG/DL Calcium Level 8.9 MG/DL B-Type Natriuretic Peptide 8 PG/ML MDM Medical Decision Making Medical Screen Exam Complete: Yes Emergency Medical Condition: Yes Interpretation(s) Tachycardic, hypoxic, 90 or 91% on 2 L Leukocytosis with left shift Renal insufficiency BNP is normal Last 24 hours Impressions Chest X-Ray 07/10/16 0542 Signed Impressions: Service Date/Time: June 06:15 - CONCLUSION: 1. Mild left lower lung atelectasis. 2. Otherwise stable examination. Zain Marino MD Differential Diagnosis COPD exacerbation, pneumonia, pulmonary embolism, pleural effusion and congestive heart failure Narrative Course This is a 66-year-old male with a history of COPD who presents to the emergency department with persistent cough and shortness of breath. He was just discharged from the hospital with a COPD exacerbation. He says he felt well when he went home yesterday but over the past 24 hours he's been worsening. He was placed on a monitor and an IV was established. He is found to have a leukocytosis which is likely in the setting of steroids. Labs are reassuring with a normal BNP. Chest x-ray is similar to prior. Patient was given serial bronchodilator treatments and a dose of IV Solu-Medrol. I had along conversation with the patient and his . We would all like to avoid another hospital admission. I think it's reasonable for the patient to increase his oxygen at home currently to 3-4 L from 2 L until his symptoms improve. They would like to try a cough medicine which I think will help and I will try to arrange for home health care for the patient. They will have a low threshold to come back if his symptoms worsen. Diagnosis Primary Impression: COPD exacerbation Patient Instructions: General Instructions Additional Instructions: If you develop severe shortness of breath, chest pain, or difficulty breathing return to the emergency department. Use albuterol every 4 hours for the next 2 days. Then use as needed for wheezing. Complete your course of steroids. Complete your course of antibiotics. Follow up with your primary care physician in 2-3 days if your symptoms have not improved. Med/Other Pt SpecificInfo: No Change to Meds Scripts Promethazine-Codeine Liq 6.25-10 Mg/5 Ml Syrp5 Ml PO Q4H PRN (COUGH AND/OR COLD SYMPTOMS) #120 ML Prov:Sepideh Pena MD 07/10/16 Disposition: 01 DISCHARGE HOME Condition: Stable Sepideh Pena MD Jul 10, 2016 05:51
[2016-07-10] MEDS: RESP: ALBUTEROL 2.5 MG/3 ML NEB (SCH) INH ×2 (05:53→05:54)
[2016-07-10 05:55] LABS: AUTOMATED NEUTROPHIL # 14.3 TH/MM3 (1.8-7.7); BASOPHIL % 0.2 % (0.0-2.0); EOSINOPHIL # 1.3 TH/MM3 (0-0.4); EOSINOPHIL % 7.7 % (0.0-4.0); HEMATOCRIT 44.7 % (39.0-51.0); LYMPH % 1.5 % (9.0-44.0); LYMPHOCYTE # 0.2 TH/MM3 (1.0-4.8); MEAN CELL VOLUME 82.5 FL (80.0-100.0); MEAN CORPUSCULAR HEMOGLOBIN 28.5 PG (27.0-34.0); MEAN CORPUSCULAR HGB CONC 34.6 % (32.0-36.0); MONO % 2.6 % (0.0-8.0); PLATELET COUNT 201 TH/MM3 (150-450); RED BLOOD COUNT 5.42 MIL/MM3 (4.50-5.90); RED CELL DISTRIBUTION WIDTH 15.2 % (11.6-17.2); WHITE BLOOD COUNT 16.3 TH/MM3 (4.0-11.0)
[2016-07-10 05:56] LABS: HEMO FLAGS AUTO DIFF
[2016-07-10] MEDS ORDERED: methylPREDNISolone SOD SUCC 125 MG/2 ML VIAL IV PUSH ONE (06:00)
[2016-07-10 06:07] LABS: BICARBONATE 30.5 MEQ/L (21.0-32.0)
--- NOTE | 2016-07-10 06:33 | RADRPT ---
EXAM DATE/TIME: 07/10/2016 06:15 [facility] COMPARISON: CT PULMONARY ANGIOGRAM, July 06, 2016, 20:48. CHEST SINGLE AP, July 06, 2016, 18:05. INDICATIONS : Shortness of breath. MEDICAL HISTORY : Chronic obstructive pulmonary disease. SURGICAL HISTORY : None. ENCOUNTER: Initial ACUITY: 1 day PAIN SCORE: 1/10 LOCATION: Bilateral chest FINDINGS: A single view of the chest demonstrates mild atelectasis in the left lung base. Otherwise, the lungs remain grossly clear. No new or significant changes seen compared to the prior study. Heart size is s table. There are no pleural effusions. No pulmonary edema. The bony structures are stable. CONCLUSION: 1. Mild left lower lung atelectasis. 2. Otherwise stable examination. Zain Marino MD on July 10, 2016 at 6:30 Board Certified Radiologist. This report was verified electronically.
[2016-07-10 06:42] LABS: BANDS 4 % (0-6); EOSINOPHILS 10 % (0-4); NEUTROPHIL # MANUAL DIFF 13.7 TH/MM3 (1.8-7.7); POLYS (SEG NEUTROPHILS) 80 % (16-70); SCAN/DIFF FINAL DIFF MANUAL; WBC DIFF SAMPLE 100
[2016-07-10 06:43] LABS: PLATELET ESTIMATE SMEAR NORMAL (NORMAL); PLATELET MORPHOLOGY CLUMPED (NORMAL); TOXIC VACUOLATION PRESENT (NONE SEEN)
[2016-07-10] MEDS ORDERED: PROM6.256 PO ×2 (06:57→10:12)
--- NOTE | 2016-07-10 06:59 | HHI.FF ---
Face to Face Verification Diagnosis: (1) COPD (chronic obstructive pulmonary disease) Physical Therapy Order: Evaluate and Treat, Improve ambulation, Strength and gait training Home Health Nursing Order: Medical education Diabetic education Oxygen administration education Nursing assessment with vital signs I have seen patient Ar Webster on 07/10/16. My clinical findings support the need for the requested home health care services because: Patient has SOB Deconditioned w/ increased weakness I certify that my clinical findings support that this patient is homebound because: Hx COPD- exertion dyspnea/weakness Sepideh Pena MD Jul 10, 2016 06:58
[2016-07-10 08:00] VITALS: BP 143/77; PULSE 96; RESP 21; TEMP 99.3; O2SAT 97
[2016-07-10 10:06] VITALS: BP 145/73
--- NOTE | 2016-07-10 10:13 | PD ---
Physical Exam Date Seen by Provider: Jul 10, 2016 Narrative The nurse came to me asking for the prescription that was ordered by the previous ER physician but somehow never got printed. I've generated this chart in order to be new and present the prescription so that patient can get it. Patient has already been discharged. Data Data Last Documented VS Vital Signs Date Time Temp Pulse Resp B/P Pulse Ox O2 Delivery O2 Flow Rate FiO2 07/10/16 10:06 91 18 145/73 98 Nasal Cannula 3 07/10/16 08:00 99.3 Orders Electrocardiogram (07/10/16 05:42) Basic Metabolic Panel (Bmp) (07/10/16 05:42) Complete Blood Count With Diff (07/10/16 05:42) Chest, Single Ap (07/10/16 05:42) Ecg Monitoring (07/10/16 05:42) Iv Access Insert/Monitor (07/10/16 05:42) Oximetry (07/10/16 05:42) Oxygen Administration (07/10/16 05:42) Sodium Chloride 0.9% Flush (Ns Flush) (07/10/16 05:45) B-Type Natriuretic Peptide (07/10/16 05:42) Albuterol Neb (Albuterol Neb) (07/10/16 05:45) Methylprednisolone So Succ Inj (Solumedr (07/10/16 06:00) Labs Laboratory Tests Test 07/10/16 05:40 White Blood Count 16.3 TH/MM3 Red Blood Count 5.42 MIL/MM3 Hemoglobin 15.5 GM/DL Hematocrit 44.7 % Mean Corpuscular Volume 82.5 FL Mean Corpuscular Hemoglobin 28.5 PG Mean Corpuscular Hemoglobin 34.6 % Concent Red Cell Distribution Width 15.2 % Platelet Count 201 TH/MM3 Mean Platelet Volume 8.6 FL Neutrophils (%) (Auto) 88.0 % Lymphocytes (%) (Auto) 1.5 % Monocytes (%) (Auto) 2.6 % Eosinophils (%) (Auto) 7.7 % Basophils (%) (Auto) 0.2 % Neutrophils # (Auto) 14.3 TH/MM3 Lymphocytes # (Auto) 0.2 TH/MM3 Monocytes # (Auto) 0.4 TH/MM3 Eosinophils # (Auto) 1.3 TH/MM3 Basophils # (Auto) 0.0 TH/MM3 CBC Comment AUTO DIFF Differential Total Cells 100 Counted Neutrophils % (Manual) 80 % Band Neutrophils % 4 % Lymphocytes % 1 % Monocytes % 5 % Eosinophils % 10 % Neutrophils # (Manual) 13.7 TH/MM3 Differential Comment FINAL DIFF MANUAL Toxic Vacuolation PRESENT Platelet Estimate NORMAL Platelet Morphology Comment CLUMPED Sodium Level 137 MEQ/L Potassium Level 4.0 MEQ/L Chloride Level 99 MEQ/L Carbon Dioxide Level 30.5 MEQ/L Anion Gap 8 MEQ/L Blood Urea Nitrogen 26 MG/DL Creatinine 1.31 MG/DL Estimat Glomerular Filtration 66 ML/MIN Rate Random Glucose 149 MG/DL Calcium Level 8.9 MG/DL B-Type Natriuretic Peptide 8 PG/ML MDM Supervised Visit with JERRY: No Diagnosis Primary Impression: COPD exacerbation Patient Instructions: General Instructions Departure Forms: Tests/Procedures Additional Instruction: If you develop severe shortness of breath, chest pain, or difficulty breathing return to the emergency department. Use albuterol every 4 hours for the next 2 days. Then use as needed for wheezing. Complete your course of steroids. Complete your course of antibiotics. Follow up with your primary care physician in 2-3 days if your symptoms have not improved. Scripts Promethazine-Codeine Liq 6.25-10 Mg/5 Ml Syrp5 Ml PO Q4H PRN (COUGH AND/OR COLD SYMPTOMS) #120 ML Prov:Jace Mathis MD 07/10/16 Disposition: 01 DISCHARGE HOME Condition: Stable Jace Mathis MD Jul 10, 2016 10:13
--- NOTE | 2016-07-10 16:21 | EKG ---
Date Performed: 07/10/2016 Time Performed: 05:55:13 PTAGE: 66 years EKG: SINUS TACHYCARDIA POSSIBLE LEFT ATRIAL ENLARGEMENT Compared to prior tracing no significant change ABNORMAL RHYTHM ECG PREVIOUS TRACING 07/06/2016 @17.54.19 DOCTOR: Rd Valles Interpretating Date/Time 07/10/2016 16:19:44
== END 2016-07-10 10:08 | disposition home or self-care (01) ==
LOC: NEPC 05:34
DX: J44.1 Chronic obstructive pulmonary disease with (acute) exacerbation (principal); E78.00 Pure hypercholesterolemia, unspecified; E11.9 Type 2 diabetes mellitus without complications; I10 Essential (primary) hypertension
CPT/HCPCS: 71010; 80048; 83880; 85007; 85027; 93005; 94640; 94664; 96374; 99285; J2930; J7613

== ENCOUNTER 2017-03-02 08:21 | Emergency (ER) | payer OTHER ==
[~2017-03-02] VITALS: Ht 175.3 cm; Wt 69.0 kg
[~2017-03-02 08:21] MED LIST changes: +PROM6.256 PO
[2017-03-02 08:23] VITALS: BP 142/95; PULSE 94; RESP 20; TEMP 98.4; O2SAT 97
[2017-03-02] MEDS ORDERED: methylPREDNISolone SOD SUCC 125 MG/2 ML VIAL IV PUSH ONE (09:30)
[2017-03-02] MEDS ORDERED: SODIUM CHLORIDE 0.9% FLUSH 10 ML FLUSH IVF PRN (09:30)
[2017-03-02] MEDS ORDERED: RESP: ALBUTEROL 2.5 MG/3 ML NEB (SCH) INH (09:30)
--- NOTE | 2017-03-02 09:30 | PD ---
HPI Chief Complaint: Respiratory Symptoms Time Seen by Provider: 09:30 Travel History International Travel<30 days: No Contact w/Intl Traveler<30days: No Traveled to known affect area: No History of Present Illness HPI 66 yr old M w/ PMHx of COPD and T2DM presents to the ED with 1 week hx of worsening SOB, wheezing, and coughing. Endorses more productive cough of white sputum and more wheezing at night. SOB worse with lifting, bending, and lying down. Better with sitting. Has tried albuterol neb treatments at home w/o improvement. Last hospitalization for COPD exacerbations was June of this year. Also complains of chronic lower back pain due to herniated discs. He would like a prescription for his back pain. Endorses THORNE, chronic night sweats , and chronic leg edema. Denies sick contacts, CP, fevers, N/V, and abdominal pain. History Social History Alcohol Use: No Tobacco Use: No Allergies-Medications (Allergen,Severity, Reaction): Coded Allergies: clindamycin (Unverified Allergy, Mild, RASH, 03/02/17) tobramycin (Unverified Allergy, Mild, RASH, 03/02/17) Reported Meds & Prescriptions Reported Meds & Active Scripts Active Naproxen 375 Mg Tab 375 Mg PO BID PRN Prednisone 20 Mg Tab 40 Mg PO DAILY 4 Days Take 40 mg (2 tablets) daily for 5 days Fluticasone Nasal [place] 50 Mcg/Act Naspr 2 [place] NASAL DAILY Reported Furosemide 20 Mg Tab 20 Mg PO DAILY Spiriva Handihaler (Tiotropium Inh) 18 Mcg Cap 18 Mcg INH DAILY 1 capsule = 18 mcg Atorvastatin (Atorvastatin Calcium) 10 Mg Tab 10 Mg PO HS Metformin ER (Metformin HCl) 500 Mg Mariam 500 Mg PO TID With evening meal Nateglinide 120 Mg Tab 120 Mg PO TIDAC Albuterol Neb (Albuterol Sulfate) 1.25 Mg/3 Ml Neb 1.25 Mg NEB TID NEB PRN Prednisone 10 Mg Tab 10 Mg PO DAILY Review of Systems Except as stated in HPI: all other systems reviewed are Neg Physical Exam Narrative GENERAL: Well-nourished, well-developed patient, lying in bed, in NAD SKIN: Warm and dry. HEAD: Normocephalic. EYES: No scleral icterus. No injection or drainage. NECK: Supple, trachea midline. No JVD or lymphadenopathy. CARDIOVASCULAR: Regular rate and rhythm without murmurs, gallops, or rubs. RESPIRATORY: wheezes in lower lung bases. no crackles. GASTROINTESTINAL: Abdomen soft, non-tender, nondistended. + BS EXTREMITIES: 2+ pitting edema in lower extremities NEUROLOGICAL: Awake, alert, and oriented x 3. Non-focal. Data Data Last Documented VS Vital Signs Date Time Temp Pulse Resp B/P (MAP) Pulse Ox O2 Delivery O2 Flow Rate FiO2 03/02/17 11:25 03/02/17 10:05 98 21 03/02/17 09:22 Room Air 03/02/17 08:52 85 03/02/17 08:23 98.4 20 Orders Orders Electrocardiogram (03/02/17 ) Comprehensive Metabolic Panel (03/02/17 09:17) Iv Access Insert/Monitor (03/02/17 09:17) Oximetry (03/02/17 09:17) Oxygen Administration (03/02/17 09:17) Methylprednisolone So Succ Inj (Solumedr (03/02/17 09:30) Albuterol Neb (Albuterol Neb) (03/02/17 09:30) Albuterol-Ipratropium Neb (Duoneb Neb) (03/02/17 09:30) Sodium Chloride 0.9% Flush (Ns Flush) (03/02/17 09:30) B-Type Natriuretic Peptide (03/02/17 09:17) Chest, Pa & Lat (03/02/17 09:54) Ketorolac Inj (Toradol Inj) (03/02/17 11:15) Labs Laboratory Tests Test 03/02/17 09:30 Blood Urea Nitrogen 15 MG/DL Creatinine 1.02 MG/DL Random Glucose 174 MG/DL Total Protein 6.6 GM/DL Albumin 3.0 GM/DL Calcium Level 8.9 MG/DL Alkaline Phosphatase 58 U/L Aspartate Amino Transf (AST/SGOT) 16 U/L Alanine Aminotransferase (ALT/SGPT) 26 U/L Total Bilirubin 0.9 MG/DL Sodium Level 136 MEQ/L Potassium Level 3.3 MEQ/L Chloride Level 100 MEQ/L Carbon Dioxide Level 28.5 MEQ/L Anion Gap 8 MEQ/L Estimat Glomerular Filtration Rate 88 ML/MIN B-Type Natriuretic Peptide 22 PG/ML MDM Medical Decision Making Medical Screen Exam Complete: Yes Emergency Medical Condition: No Differential Diagnosis COPD exacerbation vs Pneumonia vs AL vs Pulmonary Embolism Narrative Course CXR negative. Electrolytes wnl. Patient did not required supplemental oxygen. Patient improved in the ED with steroids, albuterol nebs, and Duonebs. Patient determined stable and discharge with course of steroids and NSAID for back pain. Scripts Naproxen (Naproxen) 375 Mg Tab 375 MG PO BID Y for PAIN SCALE 4 TO 10, #20 TAB 0 Refills Prov: Sepideh Pena MD 03/02/17 Prednisone (Prednisone) 20 Mg Tab 40 MG PO DAILY for 4 Days, TAB 0 Refills Take 40 mg (2 tablets) daily for 5 days Prov: Sepideh Pena MD 03/02/17 Natacha Calix MD R1 Mar 02, 2017 09:30
[2017-03-02] MEDS: RESP: ALBUTEROL 2.5 MG/IPRATROPIUM 0.5 MG NEB (SCH) INH (10:04)
--- NOTE | 2017-03-02 10:04 | RADRPT ---
EXAM DATE/TIME: 03/02/2017 09:59 [facility] COMPARISON: CHEST PA & LAT, August 29, 2013, 9:09. INDICATIONS : Shortness of breath. MEDICAL HISTORY : Chronic obstructive pulmonary disease. Diabetes mellitus type II. SURGICAL HISTORY : None. ENCOUNTER: Initial ACUITY: 1 week PAIN SCORE: 0/10 LOCATION: Bilateral chest FINDINGS: PA and lateral views of the chest demonstrate a normal-sized cardiac silhouette. Lungs are underinfla meka with atelectasis at the bases. No pleural effusion, airspace consolidation, or pneumothorax is vi sualized. Bones and soft tissues demonstrate no acute finding. There is mild thoracolumbar scoliosis. CONCLUSION: No acute cardiopulmonary abnormality is identified. Bert Darling MD on March 02, 2017 at 10:01 Board Certified Radiologist. This report was verified electronically.
[2017-03-02 10:05] VITALS: O2SAT 98
[2017-03-02 10:24] LABS: ALT (GPT) 26 U/L (12-78); ANION GAP 8 MEQ/L (5-15); AST (GOT) 16 U/L (15-37); BICARBONATE 28.5 MEQ/L (21.0-32.0); BLOOD UREA NITROGEN 15 MG/DL (7-18); CHLORIDE 100 MEQ/L (98-107); GLOMERULAR FILTRATION RATE 88 ML/MIN (>89); POTASSIUM 3.3 MEQ/L (3.5-5.1); SODIUM (NA) 136 MEQ/L (136-145)
[2017-03-02 10:26] LABS: ALKALINE PHOSPHATASE 58 U/L (45-117); TOTAL BILIRUBIN ADULT 0.9 MG/DL (0.2-1.0)
[2017-03-02] MEDS ORDERED: KETOROLAC TROMETHAMINE 30 MG/ML (IVP) VIAL IV PUSH ONE (11:15)
[2017-03-02] MEDS ORDERED: PRED20 PO (11:17)
[2017-03-02] MEDS ORDERED: NAPR375T PO (11:17)
--- NOTE | 2017-03-02 11:17 | PD ---
Data Data Last Documented VS Vital Signs Date Time Temp Pulse Resp B/P (MAP) Pulse Ox O2 Delivery O2 Flow Rate FiO2 03/02/17 10:05 98 21 03/02/17 09:22 Room Air 03/02/17 09:22 (111) 03/02/17 08:52 85 03/02/17 08:23 98.4 20 Orders Orders Electrocardiogram (03/02/17 ) Comprehensive Metabolic Panel (03/02/17 09:17) Iv Access Insert/Monitor (03/02/17 09:17) Oximetry (03/02/17 09:17) Oxygen Administration (03/02/17 09:17) Methylprednisolone So Succ Inj (Solumedr (03/02/17 09:30) Albuterol Neb (Albuterol Neb) (03/02/17 09:30) Albuterol-Ipratropium Neb (Duoneb Neb) (03/02/17 09:30) Sodium Chloride 0.9% Flush (Ns Flush) (03/02/17 09:30) B-Type Natriuretic Peptide (03/02/17 09:17) Chest, Pa & Lat (03/02/17 09:54) Labs Laboratory Tests Test 03/02/17 09:30 Blood Urea Nitrogen 15 MG/DL Creatinine 1.02 MG/DL Random Glucose 174 MG/DL Total Protein 6.6 GM/DL Albumin 3.0 GM/DL Calcium Level 8.9 MG/DL Alkaline Phosphatase 58 U/L Aspartate Amino Transf (AST/SGOT) 16 U/L Alanine Aminotransferase (ALT/SGPT) 26 U/L Total Bilirubin 0.9 MG/DL Sodium Level 136 MEQ/L Potassium Level 3.3 MEQ/L Chloride Level 100 MEQ/L Carbon Dioxide Level 28.5 MEQ/L Anion Gap 8 MEQ/L Estimat Glomerular Filtration Rate 88 ML/MIN B-Type Natriuretic Peptide 22 PG/ML MDM Supervised Visit with JERRY: No Narrative Course The history, exam, and medical decision-making in the associated Resident provider note were completed with my assistance. I reviewed and agree with the findings presented. I attest that I had a [id number] encounter with the patient on the same day, and personally performed and documented my assessment and findings in the medical record. *My assessment and Findings: This is a 66-year-old male who has a history of COPD who presents to the emergency department with increasing shortness of breath. He takes 10 mg of prednisone daily at baseline. He has a dry cough. Chest x-ray was reassuring. Electrolytes are reassuring and BMP is normal. Patient appears very well on reassessment. He received serial bronchodilators and steroids. I think he would benefit from an increased dose of prednisone for the next couple of days. He also is having some back pain. Patient will be prescribed anti-inflammatories. He will be discharged home. Diagnosis Primary Impression: COPD exacerbation Patient Instructions: General Instructions Additional Instruction: If you develop severe shortness of breath, chest pain, or difficulty breathing return to the emergency department. Use albuterol every 4 hours for the next 2 days. Then use as needed for wheezing. Complete your course of steroids. Follow up with your primary care physician in 2-3 days if your symptoms have not improved. Med/Other Pt SpecificInfo: Prescription(s) given Scripts Naproxen (Naproxen) 375 Mg Tab 375 MG PO BID Y for PAIN SCALE 4 TO 10, #20 TAB 0 Refills Prov: Sepideh Pena MD 03/02/17 Prednisone (Prednisone) 20 Mg Tab 40 MG PO DAILY for 4 Days, TAB 0 Refills Take 40 mg (2 tablets) daily for 5 days Prov: Sepideh Pena MD 03/02/17 Disposition: 01 DISCHARGE HOME Condition: Stable Sepideh Pena MD Mar 02, 2017 11:17
--- NOTE | 2017-03-02 14:16 | EKG ---
Date Performed: 03/02/2017 Time Performed: 09:00:56 PTAGE: 66 years EKG: Sinus rhythm BORDERLINE LEFT AXIS DEVIATION BORDERLINE ECG PREVIOUS TRACING : 07/10/2016 05.55 No significant change from previous tracing noted. DOCTOR: Jb Suarez Interpretating Date/Time 03/02/2017 14:15:07
== END 2017-03-02 11:38 | disposition home or self-care (01) ==
LOC: NEPE 08:21
DX: J44.1 Chronic obstructive pulmonary disease with (acute) exacerbation (principal); M54.5 Low back pain; R51 Headache; R61 Generalized hyperhidrosis; R60.0 Localized edema; R94.31 Abnormal electrocardiogram [ECG] [EKG]; E11.9 Type 2 diabetes mellitus without complications; Z79.84 Long term (current) use of oral hypoglycemic drugs; Z87.09 Personal history of other diseases of the respiratory system
CPT/HCPCS: 71020; 80053; 83880; 93005; 94640; 94664; 96374; 96375; 99285; J1885; J2930

== ENCOUNTER 2017-12-01 07:39 | Emergency (ER) | payer OTHER ==
[~2017-12-01] VITALS: Ht 172.7 cm; Wt 70.0 kg
[~2017-12-01 07:39] MED LIST changes: -AMOX500C PO; -CALTTAB PO; -HYDR-3516 PO; -LEVA750T PO; -LORA-361 PO; +NAPR-855 PO; -PROM6.256 PO
[2017-12-01 07:45] VITALS: BP 158/90; PULSE 89; RESP 16; TEMP 97.9; O2SAT 100
[2017-12-01] MEDS ORDERED: SYMB160A INH (07:55)
[2017-12-01] MEDS ORDERED: ASPI-516 CHEW (07:55)
[2017-12-01] MEDS ORDERED: SPIRCAP INH (07:55)
--- NOTE | 2017-12-01 09:09 | PD ---
HPI Chief Complaint: Pain: Acute or Chronic Time Seen by Provider: 08:21 Travel History International Travel<30 days: No Contact w/Intl Traveler<30days: No Traveled to known affect area: No History of Present Illness HPI 67-year-old male presents to the emergency room with complaint of left-sided neck pain and shoulder pain that radiates down his arm for the past 3 weeks and worsening for the past 2 days. Says he sleeps on his left side and thinks it is related to how he sleeps. Denies chest pain or shortness of breath. Denies dropping. Denies fever, vomiting. Denies paresthesias, loss of sensation, decreased range of motion, decreased strength to the left upper extremity. Pain is worse with movement of the shoulder and the neck. Better at rest. Rates pain 7/10. Has tried BenGay, ibuprofen, and heating pad with minimal relief of symptoms. Primary care provider is Dr. Miramontes. History of diabetes type 2, COPD. allergies to tobramycin and clindamycin. Has no other medical complaints. No other modifying factors or associated signs and symptoms. PFSH Past Medical History Arthritis: No Cancer: Yes (PROSTATE) Cardiovascular Problems: Yes High Cholesterol: Yes COPD: Yes (EMPHYSEMA COPD) Cerebrovascular Accident: No Diabetes: Yes Patient Takes Glucophage: Yes Diminished Hearing: No Genitourinary: Yes Hypertension: Yes Immune Disorder: No Musculoskeletal: Yes Neurologic: No Psychiatric: No Reproductive: No Respiratory: Yes (copd) Immunizations Current: Yes Migraines: No Radiation Therapy: Yes (7-8 years ago) Seizures: No Tetanus Vaccination: < 5 Years Past Surgical History Abdominal Surgery: Yes Other Surgery: Yes (4 SINUS SURGERIES - 1999 - 2006) Social History Alcohol Use: No Tobacco Use: No Substance Use: No Allergies-Medications (Allergen,Severity, Reaction): Coded Allergies: clindamycin (Unverified Allergy, Mild, RASH, 12/01/17) tobramycin (Unverified Allergy, Mild, RASH, 12/01/17) Reported Meds & Prescriptions Reported Meds & Active Scripts Active Robaxin (Methocarbamol) 500 Mg Tab 500 Mg PO QID PRN Naproxen 375 Mg Tab 375 Mg PO BID PRN Fluticasone Nasal [place] 50 Mcg/Act Naspr 2 [place] NASAL DAILY Reported Symbicort Inh (Budesonide/Formoterol Fumarate) 160-4.5 Mcg/Act Aero 2 Puff INH Q12HR Spiriva Handihaler (Tiotropium Inh) 18 Mcg Cap 18 Mcg INH DAILY 1 capsule = 18 mcg Aspirin 81 Mg Chew 81 Mg CHEW DAILY Furosemide 20 Mg Tab 20 Mg PO DAILY Spiriva Handihaler (Tiotropium Inh) 18 Mcg Cap 18 Mcg INH DAILY 1 capsule = 18 mcg Atorvastatin (Atorvastatin Calcium) 10 Mg Tab 10 Mg PO HS Metformin ER (Metformin HCl) 500 Mg Mariam 500 Mg PO TID With evening meal Nateglinide 120 Mg Tab 120 Mg PO TIDAC Albuterol Neb (Albuterol Sulfate) 1.25 Mg/3 Ml Neb 1.25 Mg NEB TID NEB PRN Prednisone 10 Mg Tab 10 Mg PO DAILY Review of Systems Except as stated in HPI: all other systems reviewed are Neg Physical Exam Narrative GENERAL: Well-nourished, well-developed elderly, black male patient, in no acute distress; afebrile, nontoxic-appearing SKIN: Warm and dry. No rash noted to the left upper back, left neck, left shoulder area, left arm. HEAD: Atraumatic. Normocephalic. EYES: Pupils equal and round. No scleral icterus. No injection or drainage. ENT: Mucosa pink and moist. Airway patent. NECK: Trachea midline. No lymphadenopathy. Active rotation of the neck greater than 45 left and right. No midline point tenderness on palpation of the cervical spine. Reproducible tenderness to the left lateral trapezius musculature of the neck and down to the upper back/shoulder area. No obvious deformities. CARDIOVASCULAR: Regular rate and rhythm. No murmur appreciated. RESPIRATORY: No accessory muscle use. Clear to auscultation. Breath sounds equal bilaterally. GASTROINTESTINAL: Abdomen soft, non-tender, nondistended. Hepatic and splenic margins not palpable. Bowel sounds are active 4 quadrants. MUSCULOSKELETAL: Left shoulder with full range of motion and greater than 90 abduction. Left upper extremity is supple nontender with 2+ radial pulse and sensory intact without erythema or edema; equal dedenter strength bilaterally. No obvious deformities. No clubbing. No cyanosis. No edema. Normal gait. BACK: No point tenderness on palpation of thoracic spine. No obvious deformities. NEUROLOGICAL: Awake and alert. Oriented 3. No obvious cranial nerve deficits. Motor grossly within normal limits. Normal speech. Moves all extremities. 5/5 strength to all extremities. Sensory intact. PSYCHIATRIC: Appropriate mood and affect; insight and judgment normal. Data Data Last Documented VS Vital Signs Date Time Temp Pulse Resp B/P (MAP) Pulse Ox O2 Delivery O2 Flow Rate FiO2 12/01/17 09:22 77 18 155/85 (108) 98 12/01/17 09:22 Room Air 12/01/17 07:45 97.9 Orders Orders Orphenadrine Inj (Norflex Inj) (12/01/17 09:15) Ed Discharge Order (12/01/17 09:12) [facility] Medical Decision Making Medical Screen Exam Complete: Yes Emergency Medical Condition: Yes Medical Record Reviewed: Yes Differential Diagnosis Cervical radiculopathy, trapezius muscle spasm, muscle strain Narrative Course 67-year-old male with left-sided cervical radiculopathy. Physical exam and HPI are consistent with musculoskeletal pain. He has no chest pain or shortness of breath. I discussed my findings with Dr. Llamas and he agrees with my plan of care and patient disposition. Norflex administered in the ER. Patient took ibuprofen prior to arrival. No midline tenderness on palpation of the cervical spine. Robaxin prescribed for home. Instructed patient to follow up with primary care provider. Patient verbalizes understanding and agreement with treatment plan. Patient is medically cleared and stable for discharge. Discussed reasons to return to the emergency department. Patient agrees with treatment plan. The patients vital signs are stable and the patient is stable for outpatient follow-up and treatment. Patient discharged home, stable and in no acute distress. Diagnosis Primary Impression: Cervical radiculopathy Referrals: Primary Care Physician Patient Instructions: Cervical Radiculopathy (ED), General Instructions, Muscle Spasm (ED) Additional Instructions: Tylenol or ibuprofen as directed and as needed for pain Robaxin as prescribed and as needed for muscle spasms Heating pad and/or ice to affected area to reduce pain Avoid aggravating activities; increase activity as tolerated Follow-up with primary care provider Return to emergency department immediately with worsening of symptoms Med/Other Pt SpecificInfo: Prescription(s) given Scripts Methocarbamol (Robaxin) 500 Mg Tab 500 MG PO QID Y for MUSCLE SPASM, #30 TAB 0 Refills Prov: Cassidy Mackenzie 12/01/17 Disposition: 01 DISCHARGE HOME Condition: Stable Cassidy Mackenzie Dec 01, 2017 09:09
[2017-12-01] MEDS ORDERED: ROBA500T PO (09:11)
[2017-12-01] MEDS ORDERED: ORPHENADRINE INJ 60 MG/2 ML AMP IM ONE (09:15)
[2017-12-01 09:22] VITALS: BP 155/85; PULSE 77; RESP 18; O2SAT 98
[2017-12-02] MEDS ORDERED: PRED10PA2 PO (08:31)
[2017-12-02] MEDS ORDERED: HYDR-3516 PO (08:31)
[2017-12-02] MEDS ORDERED: ORPH100T2 PO (08:31)
== END 2017-12-01 09:35 | disposition home or self-care (01) ==
LOC: NEPD 07:39
DX: M54.12 Radiculopathy, cervical region (principal); M25.512 Pain in left shoulder; E11.9 Type 2 diabetes mellitus without complications; J44.9 Chronic obstructive pulmonary disease, unspecified; E78.00 Pure hypercholesterolemia, unspecified; I10 Essential (primary) hypertension; Z79.51 Long term (current) use of inhaled steroids; Z79.899 Other long term (current) drug therapy; Z88.8 Allergy status to other drugs, medicaments and biological substances; Z79.82 Long term (current) use of aspirin
CPT/HCPCS: 96372; 99283; J2360

== ENCOUNTER 2017-12-02 08:01 | Emergency (ER) | payer OTHER ==
[~2017-12-02] VITALS: Ht 175.3 cm; Wt 70.0 kg
[~2017-12-02 08:01] MED LIST changes: +ASPI-516 CHEW; -PRED20 PO; +ROBA500T PO; +SYMB160A INH
[2017-12-02 08:04] VITALS: BP 179/105; PULSE 90; RESP 16; TEMP 98.3; O2SAT 98
--- NOTE | 2017-12-02 08:29 | PD ---
HPI Chief Complaint: Pain: Acute or Chronic Time Seen by Provider: 08:10 Travel History International Travel<30 days: No Contact w/Intl Traveler<30days: No Traveled to known affect area: No History of Present Illness HPI 67-year-old -[place] male presents emergency department with ongoing left side shoulder and neck pain with left arm radicular pain for the past 3 weeks. Patient was seen yesterday after worsening symptoms over the past 3 days. He states he was given Norflex, and ibuprofen, as well as a prescription for Robaxin which she has been unable to fill, as the pharmacies locally are out of it. Patient returns with ongoing pain and stiffness as well as radicular symptoms in the left arm. Patient states he took 40 mg of prednisone last evening, which he has for his COPD, which she felt improved his symptoms somewhat. Patient states pain is approximately the same as it was yesterday. He feels he is somewhat weak in the left arm secondary to his symptoms. Pain is currently 9 out of 10. It is worse with movement. He is allergic to clindamycin, and tobramycin. PFSH Past Medical History Arthritis: No Cancer: Yes (PROSTATE) Cardiovascular Problems: Yes High Cholesterol: Yes COPD: Yes (EMPHYSEMA COPD) Cerebrovascular Accident: No Diabetes: Yes Diminished Hearing: No Genitourinary: Yes Hypertension: Yes Immune Disorder: No Musculoskeletal: Yes Neurologic: No Psychiatric: No Reproductive: No Respiratory: Yes (copd) Immunizations Current: Yes Migraines: No Radiation Therapy: Yes (7-8 years ago) Seizures: No Past Surgical History Abdominal Surgery: Yes Other Surgery: Yes (4 SINUS SURGERIES - 1999 - 2006) Social History Alcohol Use: No Tobacco Use: No Substance Use: No Allergies-Medications (Allergen,Severity, Reaction): Coded Allergies: clindamycin (Unverified Allergy, Mild, RASH, 12/01/17) tobramycin (Unverified Allergy, Mild, RASH, 12/01/17) Reported Meds & Prescriptions Reported Meds & Active Scripts Active Robaxin (Methocarbamol) 500 Mg Tab 500 Mg PO QID PRN Naproxen 375 Mg Tab 375 Mg PO BID PRN Fluticasone Nasal [place] 50 Mcg/Act Naspr 2 [place] NASAL DAILY Reported Symbicort Inh (Budesonide/Formoterol Fumarate) 160-4.5 Mcg/Act Aero 2 Puff INH Q12HR Spiriva Handihaler (Tiotropium Inh) 18 Mcg Cap 18 Mcg INH DAILY 1 capsule = 18 mcg Aspirin 81 Mg Chew 81 Mg CHEW DAILY Furosemide 20 Mg Tab 20 Mg PO DAILY Spiriva Handihaler (Tiotropium Inh) 18 Mcg Cap 18 Mcg INH DAILY 1 capsule = 18 mcg Atorvastatin (Atorvastatin Calcium) 10 Mg Tab 10 Mg PO HS Metformin ER (Metformin HCl) 500 Mg Mariam 500 Mg PO TID With evening meal Nateglinide 120 Mg Tab 120 Mg PO TIDAC Albuterol Neb (Albuterol Sulfate) 1.25 Mg/3 Ml Neb 1.25 Mg NEB TID NEB PRN Prednisone 10 Mg Tab 10 Mg PO DAILY Review of Systems Except as stated in HPI: all other systems reviewed are Neg General / Constitutional: No: Fever Eyes: No: Visual changes HENT: No: Headaches Cardiovascular: No: Chest Pain or Discomfort Respiratory: No: Shortness of Breath Gastrointestinal: No: Abdominal Pain Genitourinary: No: Dysuria Musculoskeletal: Positive: Myalgias, Limited ROM, Pain Skin: No Rash Neurologic: Positive: Paresthesia, No: Weakness Psychiatric: No: Depression Endocrine: No: Polydipsia Hematologic/Lymphatic: No: Easy Bruising Physical Exam Narrative GENERAL: Patient appears in mild to moderate distress. SKIN: Warm and dry. Normal color. Normal turgor. No rash. HEAD: Atraumatic. Normocephalic. EYES: Pupils equal and round. No scleral icterus. No injection or drainage. ENT: No nasal bleeding or discharge. Mucous membranes pink and moist. Pharynx is clear. Airways patent. NECK: Trachea midline. Patient has no bony tenderness or step-off. Range of motion is full without significant increase in pain. Patient has obvious muscle spasms in the left upper trapezius and subscapularis. CARDIOVASCULAR: Regular rate and rhythm. RESPIRATORY: No accessory muscle use. Clear to auscultation. Breath sounds equal bilaterally. GASTROINTESTINAL: Abdomen soft, non-tender, nondistended. Hepatic and splenic margins not palpable. MUSCULOSKELETAL: Extremities without clubbing, cyanosis, or edema. No obvious deformities. Patient is reproducible pain along the left shoulder and trapezius , with muscle spasms appreciated. Range of motion is intact, normal strength is noted. No obvious paresthesias noted. NEUROLOGICAL: Awake and alert. No obvious cranial nerve deficits. Motor grossly within normal limits. Five out of 5 muscle strength in the arms and legs. Normal speech. PSYCHIATRIC: Appropriate mood and affect; insight and judgment normal. Data Data Last Documented VS Vital Signs Date Time Temp Pulse Resp B/P (MAP) Pulse Ox O2 Delivery O2 Flow Rate FiO2 12/02/17 08:04 98.3 90 16 179/105 (129) 98 Orders Orders Ketorolac Inj (Toradol Inj) (12/02/17 08:30) Orphenadrine Inj (Norflex Inj) (12/02/17 08:30) Prednisone (Deltasone) (12/02/17 08:30) [facility] Medical Decision Making Medical Screen Exam Complete: Yes Emergency Medical Condition: Yes Medical Record Reviewed: Yes Differential Diagnosis Spasmodic torticollis. Muscle spasm. Left shoulder pain. Left radicular pain. Narrative Course Radiographic imaging is not felt warranted based on my current physical and history. Patient is given Norflex 60 mg IM. Patient is given 30 mg Toradol IM. Patient is given prednisone 40 mg p.o. now. Patient is not to fill the Robaxin as he cannot get it, and is switched to Norflex 100 mg twice daily #20. Patient is continued on prednisone taper pack as prescribed. Patient is given a prescription for Lortab 5/325 1 every 6 hours as needed #12. Patient is to use heat, gentle stretching, and follow-up with primary care if symptoms persist or worsen as needed. Diagnosis Primary Impression: Torticollis, spasmodic Additional Impression: Radiculopathy affecting upper extremity Patient Instructions: General Instructions, Spasmodic Torticollis (ED) Additional Instructions: Radiographic imaging is not felt warranted based on my current physical and history. Patient is given Norflex 60 mg IM. Patient is given 30 mg Toradol IM. Patient is given prednisone 40 mg p.o. now. Patient is not to fill the Robaxin as he cannot get it, and is switched to Norflex 100 mg twice daily #20. Patient is continued on prednisone taper pack as prescribed. Patient is given a prescription for Lortab 5/325 1 every 6 hours as needed #12. Patient is to use heat, gentle stretching, and follow-up with primary care if symptoms persist or worsen as needed. Med/Other Pt SpecificInfo: Prescription(s) given Disposition: 01 DISCHARGE HOME Condition: Stable Winston Velez 20, 2018 08:29
[2017-12-02] MEDS ORDERED: KETOROLAC TROMETHAMINE 60 MG/2 ML (IM) VIAL IM ONE (08:30)
[2017-12-02] MEDS ORDERED: predniSONE 20 MG TAB PO ONE (08:30)
[2017-12-02] MEDS ORDERED: ORPHENADRINE INJ 60 MG/2 ML AMP IM ONE (08:30)
[2017-12-02] MEDS ORDERED: ORPH100T2 PO (08:31)
[2017-12-02] MEDS ORDERED: HYDR-3516 PO (08:31)
[2017-12-02] MEDS ORDERED: PRED10PA2 PO (08:31)
== END 2017-12-02 09:15 | disposition home or self-care (01) ==
LOC: NEPD 08:01
DX: M43.6 Torticollis (principal); M54.10 Radiculopathy, site unspecified; I10 Essential (primary) hypertension; E11.9 Type 2 diabetes mellitus without complications; E78.00 Pure hypercholesterolemia, unspecified; J44.9 Chronic obstructive pulmonary disease, unspecified; Z88.1 Allergy status to other antibiotic agents; Z85.46 Personal history of malignant neoplasm of prostate; Z79.84 Long term (current) use of oral hypoglycemic drugs; Z79.899 Other long term (current) drug therapy
CPT/HCPCS: 96372; 99283; J1885; J2360; J7512